=== PATIENT | male | born 1935 | race Caucasian/White ===

== ENCOUNTER 2017-02-13 11:53 | Observation (INO) ==
[2017-02-13 12:57] LABS: Basophils # 0.1 10*3/uL (0.0-0.2); Basophils % 0.7 % (0.0-0.8); Eosinophils # 0.1 10*3/uL (0.0-0.87); Eosinophils % 1.7 % (0.00-10.9); Hematocrit 36.3 VOL% (42.0-52.0); Hemoglobin 12.8 GM/DL (14.0-18.0); Immature Granulocytes % 0.4 %; Immature Granulocytes Absolute 0.03 #; Lymphocytes # 1.1 10*3/uL (1.4-4.0); Lymphocytes % 12.9 % (21.2-54.2); Mean Corpuscular HGB Conc 35.3 GM/DL (32-36); Mean Corpuscular Hemoglobin 31 PG (27-34); Mean Corpuscular Volume 88.1 FL (87-102); Mean Platelet Volume 10.8 FL (9.6-12.0); Monocytes % 11.7 % (1.7-12.7); Neutrophils # 6.1 10*3/uL (1.4-7.4); Neutrophils % 72.6 % (38.7-73.9); Platelet Count 195 T/CUMM (130-400); Red Blood Count 4.12 MC/CUMM (3.8-5.5); Red Cell Distribution Width 14.7 % (9.3-17.3); White Blood Count 8.4 T/CUMM (4-12)
[2017-02-13 13:33] LABS: Blood Urea Nitrogen 50 MG/DL (7-18); Calcium 9.2 MG/DL (8.5-10.1); Glucose 64 MG/DL (74-106); Magnesium 2.4 MG/DL (1.8-2.4); Osmolality,Calculated 289.4 MOS/KG (273-304); Potassium 3.6 MMOL/L (3.5-5.1); Sodium 140 MMOL/L (136-145); Troponin I Only < 0.015 NG/ML (0.00-0.045)
--- NOTE | 2017-02-13 13:38 | XRay Report ---
History: Shortness of breath Date: 02/13/2017 Study: Chest x-ray AP portable Comparison exam: June 22, 2016 There is continued cardiomegaly. The mediastinal contour is unchanged. There is mild aortic arch calcification. The pulmonary vasculature is upper normal. There is no gross pleural effusion. The exam was performed in shallow inspiration. There is minor platelike scar in the left lateral lung base. There is no definite acute infiltrate. Osseous structures are unchanged, with mild to moderate thoracic spondylosis. A left subclavian dual-lead transvenous pacemaker is stable in appearance. Impression: No significant change from the previous study. Cardiomegaly. Scarring in the left lung base. Pacemaker as before PROCEDURE INTERPRETED AT [facility] DEPARTMENT OF RADIOLOGY Final Report Signed by: Dr. Acacia Smart
[2017-02-13] MEDS ORDERED: MAGNESIUM SULF RIDER 4 GM in PREMIX 1 EACH IV PRN (13:57)
[2017-02-13] MEDS ORDERED: MAGNESIUM SULF RIDER 2 GM in PREMIX 1 EACH IV PRN (13:57)
--- NOTE | 2017-02-13 13:57 | Emergency Department Note ---
IPat Emily, am scribing for, and in the presence of, Irving Morrow M.D. 12 :52. ICristhian Howard T, M.D., personally performed the services described in this documentation, ascribed by Etelvina Stewart in my presence, and it is both accurate and complete [id number] . Arrival - Arrival Chief Complaint: Shortness of Breath Stated Complaint: sob,has pacemaker ED Nursing Triage Note: C/o sudden onset SOB-onset one hour ago. 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 Mode of Arrival: Wheelchair Limitations: No Limitations Source: Patient Time Seen by Provider: 02/13/17 12:43 - History of Present Illness HPI Narrative: Pt is a 81 y/o male who came to ED with c/o SOB that started earlier today while at [employer]. Pt notes having cold chills last night but denies any pains or other sxs today. 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 PMHx of 2014 had CA with [address] Garcia. Pt takes ASA and Plavix daily. Onset (ago): hour(s) Consistency: constant Severity: mild Severity scale (1-10): 3 Quality: fullness Allergies/Adverse Reactions: Allergies Allergy/AdvReac Type Severity Reaction Status Date / Time gabapentin Allergy dyskinesia Verified 06/11/15 07:12 Home Medications: Home Medications Medication Instructions Recorded Confirmed Type Pramipexole [Mirapex] 1 mg PO BEDTIME 06/03/15 02/13/17 History Atorvastatin [Lipitor] 80 mg PO BEDTIME #30 tablet 06/17/15 02/13/17 Rx Carvedilol [Coreg] 25 mg PO BID #60 tablet 06/17/15 02/13/17 Rx Cyclobenzaprine [Flexeril] 5 mg PO TID PRN #30 tablet 06/17/15 02/13/17 Rx Isosorbide Mononitrate [Imdur] 30 mg PO DAILY #30 tablet 06/17/15 02/13/17 Rx Nitroglycerin Sl Tab [Nitrostat] 0.4 mg SL Q5M PRN #0 tablet 06/17/15 02/13/17 Rx Pantoprazole Tab [Protonix Tab] 40 mg PO DAILY #30 tablet 06/17/15 02/13/17 Rx Benzonatate [Tessalon] 100 mg PO TID PRN 09/25/15 02/13/17 History Clopidogrel [Plavix] 75 mg PO DAILY 09/25/15 02/13/17 History Furosemide Tab [Lasix Tab] 40 mg PO DAILY 09/25/15 02/13/17 History clonazePAM [Clonazepam] 1 mg PO BEDTIME 09/25/15 02/13/17 History hydrALAZINE TAB [Apresoline Tab] 50 mg PO TID 09/25/15 02/13/17 History Aspirin EC Tab 325 mg PO DAILY 02/13/17 02/13/17 History Insulin Aspart Prot/Insuln Asp 32 unit SUBCUT BEDTIME 02/13/17 02/13/17 History [NovoLOG Mix 70-30 FlexPen] Insulin Aspart Prot/Insuln Asp 74 unit SUBCUT QAM 02/13/17 02/13/17 History [NovoLOG Mix 70-30 FlexPen] Review of System - Review of System 12 point system: reviewed and no additional remarkable complaints except as stated - Review of System Constitutional: Present: chills (cold last night). Absent: fever Respiratory: Present: respiratory distress Cardiovascular: Absent: chest pain Gastrointestinal: Absent: abdominal pain, nausea, vomiting Musculoskeletal: Absent: arm pain, neck pain Skin: Absent: rash Neurological: Absent: headache Medical,Surgical,& Family Hx - Medical History Cardio: History of: CAD, Hypertension, CA, Pacemaker, Cardiovascular Problems Neurology: No history of: Seizures Endocrine: History of: Diabetes Mellitus (NIDDM) Genitourinary: History of: Prostate Problems (history of prostate cancer), Genitourinary Cancer (history of prostate cancer) - Surgical History Cardiac Surgeries: Sugical HX of: Cardiac Catheterization (stents x's 2) Neurologic Surgeries: Surgical HX of: Neurologic Surgery (back surgery) Reproductive Surgeries: Surgical HX of;: Prostate Surgery - Family History Family History: Reports;: Family Diabetes - Social History Smoking Status: Never smoker Frequency of Alcohol Use: None Type of Drug Use: None Marital Status: Single Lives With:: Alone Functional capacity: independent ambulation Exam Vital Signs: Vital Signs Temperature 97.8 F 02/13/17 12:02 Pulse Rate 81 02/13/17 12:02 Respiratory Rate 20 02/13/17 12:02 Blood Pressure 112/64 02/13/17 12:02 O2 Sat by Pulse Oximetry 95 02/13/17 12:02 - General General appearance: alert, in distress (appears uncomfortable) - Head Head exam: Present: atraumatic, normocephalic - Eye Eye exam: Present: PERRL, EOMI - ENT ENT exam: Present: mucous membranes moist. Absent: mucous membranes dry - Neck Neck exam: Present: full ROM. Absent: tenderness - Chest Chest inspection: Present: symmetric chest wall rise. Absent: tenderness - Respiratory Respiratory exam: Present: normal lung sounds bilaterally. Absent: accessory muscle use, respiratory distress, wheezes - Cardiovascular Cardiovascular exam: Present: regular rate, normal rhythm, normal heart sounds - Abdominal Exam Abdominal exam: Present: soft, normal bowel sounds. Absent: distention, tenderness - Extremities Exam Extremities exam: Present: full ROM, pedal edema (+1 in BLE). Absent: tenderness - Neurological Exam Neurological exam: Present: alert, oriented X3, CN II-XII intact. Absent: motor sensory deficit - Psychiatric Psychiatric exam: Present: normal affect, normal mood - Skin Skin exam: Present: warm, dry Course Course Narrative: Medical decision making: Patient initial troponin negative but his story is suggestive given his history of cardiac issues so contact Dr. Polanco for admission she agreed overnight obvious and continue monitoring troponin. She agreed with VQ scan of elevated d-dimer. For now patient otherwise appears stable and we will admit to Dr. Polanco for continued evaluation and treatment. Results - Labs CBC & BMP: 02/13/17 12:50 02/13/17 13:01 Lab Results: I have reviewed the patients labs Labs: trop neg, ddimer elevated - EKG EKG results: interpreted by ERMD, sinus rhythm (occas pvc, RBBB), normal axis, normal ST/T - Diagnostic Findings Procedure: Chest x-ray: report reviewed by me (no acute) Disposition Clinical Impression: CRI (chronic renal insufficiency), Coronary artery disease, SOB (shortness of breath) Case discussed with: patient Disposition: Still a Patient Condition: Stable Time of Disposition: 13:57
--- NOTE | 2017-02-13 15:37 | Nuclear Medicine Report ---
History: Acute shortness of breath. Elevated d-dimer Date: 02/13/2017 Study: Nuclear medicine ventilation/perfusion lung scan Comparison exam: Chest x-ray 02/13/2017 Following the inhalation of 40 mCi aerosolized technetium 99m DTPA, images were acquired of the lungs in 3 projections for the purpose of a ventilation study. Then, following the IV administration of 5 mCi technetium 99m MAA, images were acquired of the lungs in the same projections for the purpose of a perfusion scan. There is no moderate or large unmatched segmental perfusion defect in either lung. Ventilation is without significant segmental defect. Impression: Low probability for pulmonary embolic disease PROCEDURE INTERPRETED AT [facility] DEPARTMENT OF RADIOLOGY Final Report Signed by: Dr. Acacia Smart
[2017-02-13 16:30] LABS: Troponin I Only < 0.015 NG/ML (0.00-0.045)
--- NOTE | 2017-02-13 17:30 | Cardiology History & Physical ---
Assessment and Plan (1) SOB (shortness of breath) Status: Acute Current Visit: Yes (2) CRI (chronic renal insufficiency) Status: Chronic Current Visit: Yes Qualifiers: Chronic kidney disease stage: stage 4 (severe) Qualified Code(s): N18.4 - Chronic kidney disease, stage 4 (severe) (3) Coronary artery disease Status: Chronic Current Visit: Yes (4) Atrial fibrillation Status: Chronic Current Visit: No Qualifiers: Atrial fibrillation type: paroxysmal Qualified Code(s): I48.0 - Paroxysmal atrial fibrillation (5) Diabetes mellitus Status: Chronic Current Visit: No (6) Hyperlipidemia Status: Chronic Current Visit: No (7) Hypertension Status: Chronic Current Visit: No History of Present Illness Chief complaint: sob History of present illness: Manager Of Maintenance: Dr. 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 History of ICM (EF 45%. ) May 2015 he underwent PCI with stent to proximal and mid LAD (NAE x 3), and inability to cross distal LAD, RCA 100% SHIRRER, Cx - 80% haziness was noted. Post [facility] he experienced severe bradycardia requiring PPM implantation. September underwent PCI of proximal Cx, Patent stents noted to LAD, persistent severe distal LAD disease was unchanged. Anticoagulation therapy has been withheld due to history of anemia, high falls risk, and requirement for dual antiplatelet therapy. The patient's most recent cardiac evaluation including stress testing August 2016 for symptoms of dyspnea, which did not show any ischemia. Echocardiogram July 2016 demonstrated ejection fraction 60% with some inferior wall regional wall motion abnormalities (corresponding with his RCA SHIRRER). He was seen in clinic by Dr. James 4 days ago and his pacemaker settings were adjusted. The patient was in his usual state of health until today. While at [employer] she began feeling short of breath. There was no chest pain, he denies palpitations. 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 In retrospect , he was very cold last night and had to put on a heavy jacket. He was not necessarily having fevers or chills. His driveway sealer notes that he has been having a little more difficulty exerting himself, but this seems to come more from leg and knee pain and fatigue giving out when he ambulates, more so than shortness of breath and chest discomfort. His edema has been well controlled. Impression and plan: 1. Shortness of breath-etiology is unclear. Chest x-ray is not compelling. BNP is relatively low, he does not appear to be volume overloaded on exam so I do not believe this is heart failure. He does not have a leukocytosis, cough or other clinical features of infection. The lung exam is relatively clear. We have ruled out pulmonary embolism. One possibility is that he was experiencing a bout of atrial fibrillation. Another of course would be angina, and we will cycle his cardiac biomarkers. We will have his device interrogated tomorrow, and order pulmonary function tests. If none of this yields a source for his symptoms, we could consider cardiac catheterization. However, he has significant renal insufficiency and a recent stress test that was normal. This would be a last resort. 2. Coronary artery disease-see above. 3. Atrial fibrillation-see above. 4. History of ischemic cardiomyopathy-he is not volume overloaded on exam today. 5. Hypertension-controlled. 6. Chronic renal insufficiency-appears to be somewhat stable. I am going to hold his Lasix as he may be mildly prerenal. We may need to decrease his Lasix to daily, or to take twice daily every other day, and daily on the other days. We will need to follow his weights and clinical condition. I discussed the patient's condition with his driveway sealer, as well as his son Everett Gillespie. Home Medications Medication Instructions Recorded Confirmed Type Pramipexole [Mirapex] 1 mg PO BEDTIME 06/03/15 02/13/17 History Atorvastatin [Lipitor] 80 mg PO BEDTIME #30 tablet 06/17/15 02/13/17 Rx Carvedilol [Coreg] 25 mg PO BID #60 tablet 06/17/15 02/13/17 Rx Cyclobenzaprine [Flexeril] 5 mg PO TID PRN #30 tablet 06/17/15 02/13/17 Rx Isosorbide Mononitrate [Imdur] 30 mg PO DAILY #30 tablet 06/17/15 02/13/17 Rx Nitroglycerin Sl Tab [Nitrostat] 0.4 mg SL Q5M PRN #0 tablet 06/17/15 02/13/17 Rx Pantoprazole Tab [Protonix Tab] 40 mg PO DAILY #30 tablet 06/17/15 02/13/17 Rx Benzonatate [Tessalon] 100 mg PO TID PRN 09/25/15 02/13/17 History Clopidogrel [Plavix] 75 mg PO DAILY 09/25/15 02/13/17 History Furosemide Tab [Lasix Tab] 40 mg PO DAILY 09/25/15 02/13/17 History clonazePAM [Clonazepam] 1 mg PO BEDTIME 09/25/15 02/13/17 History hydrALAZINE TAB [Apresoline Tab] 50 mg PO TID 09/25/15 02/13/17 History Aspirin EC Tab 325 mg PO DAILY 02/13/17 02/13/17 History Insulin Aspart Prot/Insuln Asp 32 unit SUBCUT BEDTIME 02/13/17 02/13/17 History [NovoLOG Mix 70-30 FlexPen] Insulin Aspart Prot/Insuln Asp 74 unit SUBCUT QAM 02/13/17 02/13/17 History [NovoLOG Mix 70-30 FlexPen] Allergies Allergy/AdvReac Type Severity Reaction Status Date / Time gabapentin Allergy dyskinesia Verified 06/11/15 07:12 12 point system: reviewed and no additional remarkable complaints except as stated Medical,Surgical,& Family Hx - Medical History Cardio: History of: CHF, CAD, Hypertension, [place], Pacemaker, Cardiovascular Problems Neurology: No history of: Seizures Endocrine: History of: Diabetes Mellitus (NIDDM) Respiratory: History of: Obstructive Sleep Apnea Genitourinary: History of: Prostate Problems (history of prostate cancer), Genitourinary Cancer (history of prostate cancer) Gastrointestinal: History of: GERD - Surgical History Cardiac Surgeries: Sugical HX of: Cardiac Catheterization (stents x's 2) Neurologic Surgeries: Surgical HX of: Neurologic Surgery (back surgery) Abdominal Surgeries: Surgical HX of: Appendectomy Reproductive Surgeries: Surgical HX of;: Prostate Surgery - Family History Family History: Reports;: Family Diabetes - Social History Smoking Status: Never smoker Frequency of Alcohol Use: None Type of Drug Use: None Lives With:: Alone Functional capacity: independent ambulation Cardiology Physical Exam - Constitutional Vitals: Vital Signs Temp Pulse Resp BP Pulse Ox 96.9 F L 83 22 158/80 97 02/13/17 15:33 02/13/17 15:33 02/13/17 15:33 02/13/17 15:33 02/13/17 15:33 Intake and Output 02/13/17 02/13/17 02/13/17 07:59 15:59 23:59 Other: Weight 105.687 kg Patient Weight 02/13/17 23:59 Weight 105.687 kg Exam: General appearance: normal weight, no acute distress - Head Head exam: Present: normal inspection, normocephalic, atraumatic. Absent: hematoma, laceration - Eye Eye exam: Present: EOMI. Absent: conjunctival injection, nystagmus, periorbital swelling, scleral icterus, laceration to eyelids Pupils: Present: PERRL. Absent: constricted, dilated, fixed, irregular, unequal - ENT ENT exam: Present: normal exam, normal external ear exam - Neck Neck exam: Present: normal inspection. Absent: lymphadenopathy, meningismus, tenderness, thyromegaly - Respiratory Respiratory exam: Present: clear to auscultation bilaterally. Absent: accessory muscle use, chest wall tenderness - Cardiovascular Cardiovascular exam: Present: regular rate and rhythm. Absent: carotid bruit, gallop, JVD, rubs - GI/Abdominal GI/Abdominal exam: Present: normal bowel sounds, soft. Absent: distended, firm , guarding, hernia, mass, tenderness, rebound. - Extremities Exam Extremities exam: Present: normal inspection, normal capillary refill. Absent: calf tenderness, edema - Back Exam Back exam: Present: normal inspection. Absent: muscle spasm, vertebral tenderness - Neurological Exam Neurological exam: Present: alert, oriented X3, grossly intact without resting or intention tremor - Psychiatric Psychiatric exam: Present: normal affect, normal mood - Skin Skin exam: Present: normal color, warm, dry, intact. Absent: cyanosis, diaphoretic, rash, urticaria Result/EKG - Labs CBC & BMP: 02/13/17 12:50 02/13/17 13:01 Lab Results: I have reviewed the past 24 hour labs Labs: Laboratory Results - last 24 hr 02/13/17 02/13/17 02/13/17 12:50 13:00 13:01 WBC 8.4 RBC 4.12 Hgb 12.8 L Hct 36.3 L MCV 88.1 MCH 31 MCHC 35.3 RDW 14.7 Plt Count 195 MPV 10.8 Neut % (Auto) 72.6 Lymph % (Auto) 12.9 L [place] % (Auto) 11.7 Eos % (Auto) 1.7 Baso % (Auto) 0.7 Neut # (Auto) 6.1 Lymph # (Auto) 1.1 L [place] # (Auto) 1.0 H Eos # (Auto) 0.1 Baso # (Auto) 0.1 Immature Gran % 0.4 Nucleated RBC % 0.0 Immature Gran # 0.03 Nucleated RBCs # 0.00 Immature Plt Fraction 0.0 D-Dimer, Quantitative 1.9 Sodium 140 Potassium 3.6 Chloride 103 Carbon Dioxide 31 Anion Gap 9.6 BUN 50 H Creatinine 2.80 H GFR Calculation 26 BUN/Creatinine Ratio 17.00 Glucose 64 L POC Glucose Calculated Osmolality 289.4 Calcium 9.2 Magnesium 2.4 Total Creatine Kinase CK-MB (CK-2) Troponin I < 0.015 B-Natriuretic Peptide 02/13/17 02/13/17 02/13/17 13:02 15:28 15:50 WBC RBC Hgb Hct MCV MCH MCHC RDW Plt Count MPV Neut % (Auto) Lymph % (Auto) [place] % (Auto) Eos % (Auto) Baso % (Auto) Neut # (Auto) Lymph # (Auto) [place] # (Auto) Eos # (Auto) Baso # (Auto) Immature Gran % Nucleated RBC % Immature Gran # Nucleated RBCs # Immature Plt Fraction D-Dimer, Quantitative Sodium Potassium Chloride Carbon Dioxide Anion Gap BUN Creatinine GFR Calculation BUN/Creatinine Ratio Glucose POC Glucose 45 L* Calculated Osmolality Calcium Magnesium Total Creatine Kinase 172 CK-MB (CK-2) 2.6 Troponin I < 0.015 B-Natriuretic Peptide 181 H - Diagnostic Findings Procedure: Chest x-ray: report reviewed by me - EKG EKG results: interpreted by me, sinus rhythm, no acute changes
[2017-02-13] MEDS ORDERED: NITROGLYCERIN SL 0.4 MG TABLET SL PRN (17:37)
[2017-02-13] MEDS ORDERED: BENZONATATE 100 MG CAPSULE PO PRN (17:37)
[2017-02-13 20:42] LABS: Troponin I Only < 0.015 NG/ML (0.00-0.045)
[2017-02-13] MEDS ORDERED: CARVEDILOL 25 MG TABLET PO SCH (21:00)
[2017-02-13] MEDS: INSULIN ASPART PROTAMINE/ASPART 70/30 100 UNIT/ML SUBCUT SCH (21:25)
[2017-02-13] MEDS: ATORVASTATIN 40 MG TABLET PO SCH (21:25)
[2017-02-13] MEDS: PRAMIPEXOLE 1 MG TABLET PO SCH (21:26)
[2017-02-13] MEDS: clonazePAM 0.5 MG TABLET PO SCH (21:26)
[2017-02-14 05:30] LABS: Basophils # 0.1 10*3/uL (0.0-0.2); Basophils % 0.8 % (0.0-0.8); Eosinophils # 0.2 10*3/uL (0.0-0.87); Eosinophils % 2.7 % (0.00-10.9); Hematocrit 35.7 VOL% (42.0-52.0); Hemoglobin 12.3 GM/DL (14.0-18.0); Immature Granulocytes % 0.6 %; Immature Granulocytes Absolute 0.04 #; Lymphocytes # 1.2 10*3/uL (1.4-4.0); Mean Corpuscular HGB Conc 34.5 GM/DL (32-36); Mean Corpuscular Hemoglobin 31 PG (27-34); Mean Corpuscular Volume 89.9 FL (87-102); Mean Platelet Volume 10.9 FL (9.6-12.0); Monocytes # 0.8 10*3/uL (0.11-0.8); Monocytes % 12.6 % (1.7-12.7); Neutrophils # 4.3 10*3/uL (1.4-7.4); Neutrophils % 65.3 % (38.7-73.9); Platelet Count 182 T/CUMM (130-400); Red Blood Count 3.97 MC/CUMM (3.8-5.5); Red Cell Distribution Width 14.7 % (9.3-17.3); White Blood Count 6.6 T/CUMM (4-12)
[2017-02-14 06:04] LABS: Magnesium 2.4 MG/DL (1.8-2.4); Osmolality,Calculated 296.3 MOS/KG (273-304); Potassium 3.7 MMOL/L (3.5-5.1)
--- NOTE | 2017-02-14 06:06 | EKG Report ---
Stationary ECG Study [facility] ER Test Date: 02/13/2017 12:01:12 PM Pat Name: MARLENA RODNEY Department: Room: 279 Gender: M [employer] Ex[employer]ator: : 1935 Requested by: Melvin Harris Order Number: [id number] Reading MD: LEIGH ANN MUNSON Intervals Calvin Rate: 83 P: -57 VA: 190 QRS: 24 QRSD: 123 T: 1 QT: 391 QTc: 430 Interpretive Statements Artifacts limit interpretation Likely atrial paced rhythm PACs RIGHT BUNDLE BRANCH BLOCK Electronically Signed On 02-14-17 07:41:21 CDT by LEIGH ANN MUNSON [email or web address]
[2017-02-14] MEDS: ISOSORBIDE MONONITRATE 30 MG TABLET PO SCH (08:34)
[2017-02-14] MEDS: NEBIVOLOL 10 MG TABLET PO SCH (08:34)
[2017-02-14] MEDS: ASPIRIN EC 325 MG TABLET PO SCH (08:34)
[2017-02-14] MEDS: INSULIN ASPART PROTAMINE/ASPART 70/30 100 UNIT/ML SUBCUT SCH ×2 (08:35→20:28)
[2017-02-14] MEDS: CLOPIDOGREL 75 MG TABLET PO SCH (08:35)
[2017-02-14] MEDS: PANTOPRAZOLE 40 MG TABLET PO SCH (08:35)
[2017-02-14 10:40] LABS: Free T4 (Free Thyroxine) 0.8 NG/DL (0.76-1.46); Thyroid Stimulating Hormone 0.354 uIU/ml (0.358-3.74)
[2017-02-14 10:54] LABS: Apearance,Urine CLEAR (Clear); Bilirubin,Urine Negative (Negative); Blood, Urine Negative (Negative); Glucose,Urine (UA) 50 mg/dL (Negative); Ketones,Urine Negative (Negative); Nitrite,Urine Negative (Negative); Protein,Urine Negative; Urine Color Straw (Yellow); Urine Specific Gravity 1.012 (1.001-1.035); Urine Urobilinogen < 2.0 EU/DL (0.2-1.0); WBC,Urine <1 /HPF (0-6)
--- NOTE | 2017-02-14 11:16 | Cardiology Progress Note ---
Assessment and Plan - Time spent with patient Time spent with patient: Greater than 30 minutes (1) Hypertension Status: Chronic Assessment and plan: SEE PLAN OF CARE LISTED BELOW Current Visit: No (2) Diabetes mellitus Status: Chronic Assessment and plan: SEE PLAN OF CARE LISTED BELOW Current Visit: No (3) S/P cardiac pacemaker procedure Status: Chronic Assessment and plan: SEE PLAN OF CARE LISTED BELOW Current Visit: No (4) Atrial fibrillation Status: Chronic Assessment and plan: SEE PLAN OF CARE LISTED BELOW Current Visit: No Qualifiers: Atrial fibrillation type: paroxysmal Qualified Code(s): I48.0 - Paroxysmal atrial fibrillation (5) Coronary artery disease Status: Chronic Assessment and plan: SEE PLAN OF CARE LISTED BELOW Current Visit: Yes Qualifiers: Coronary Disease-Associated Artery/Lesion type: [place] artery [place] vs. transplanted heart: [place] heart Associated angina: without angina Qualified Code(s): I25.10 - Atherosclerotic heart disease of [place] coronary artery without angina pectoris (6) Hyperlipidemia Status: Chronic Assessment and plan: SEE PLAN OF CARE LISTED BELOW Current Visit: No (7) CRI (chronic renal insufficiency) Status: Chronic Assessment and plan: SEE PLAN OF CARE LISTED BELOW Current Visit: Yes Qualifiers: Chronic kidney disease stage: stage 4 (severe) Qualified Code(s): N18.4 - Chronic kidney disease, stage 4 (severe) (8) SOB (shortness of breath) Status: Resolved Assessment and plan: SEE PLAN OF CARE LISTED BELOW Current Visit: Yes Cardiology - PN: Subj Interval history: CHIEF OPERATOR: DR. POLANCO SUMMARY: 81WM routinely followed by Dr. Polanco. 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 Post [facility] he experienced severe bradycardia requiring PPM implantation. September 25, 2015 underwent PCI of proximal Cx, Patent stents noted to LAD, persistent severe distal LAD disease was unchanged. Anticoagulation therapy has been withheld due to history of anemia, high falls risk, and requirement for dual antiplatelet therapy. The patient's most recent cardiac evaluation including stress testing August 2016 for symptoms of dyspnea, which did not show any ischemia. Echocardiogram July 2016 demonstrated ejection fraction 60% with some inferior wall regional wall motion abnormalities (corresponding with his RCA MOLDING MANAGER). He was seen in clinic by Dr. James 5 days ago and his pacemaker settings were adjusted. Admitted February 13, 2017 for SOB. No complaints of chest pain or palpitations. Because it lasted for "a while" he felt as if he should be evaluated in the emergency department. He also had complaints of chronic fatigue, essentially unchanged. Underwent VQ lung scan which revealed low probability of PE. Chest x-ray was essentially unremarkable. Labs stable. EKG revealed chronic right bundle branch block. BNP relatively low without evidence of CHF. FEBRUARY 14, 2017: Patient has had no additional shortness of breath. His shortness of breath was relieved in the afternoon yesterday. After reviewing telemetry, no obvious arrhythmia, occasional pacing. His pacemaker is to be interrogated this morning, specifically looking for possible arrhythmia during adventism hours. Cardiac biomarkers negative. EKG does not reveal DE. Blood pressure averaging 113 -173/60 - 80. Could consider increasing Bystolic. Patient is feeling better altogether. Will further discuss with Dr. James and await additional recommendations. Impression and plan: 1. Shortness of breath- etiology is unclear. Chest x-ray is not compelling, VQ Lung scan - low probability PE. BNP relatively low, does not appear to be volume overloaded on exam so I do not believe this is heart failure. He does not have a leukocytosis, cough or other clinical features of infection. The lung exam is relatively clear. We have ruled out pulmonary embolism. One possibility is that he was experiencing a bout of atrial fibrillation. Another of course would be angina (CIEs negative). We will have his device interrogated this morning. Underwent PFTs this morning. If none of this yields a source for his symptoms, may consider cardiac catheterization. However, he has significant renal insufficiency and a recent stress test that was normal. This would be a last resort. 2. Coronary artery disease- see above. 3. Atrial fibrillation- see above. 4. History of ischemic cardiomyopathy- he is not volume overloaded on exam. This is not CHF. 5. Hypertension- adequately controlled. 6. Chronic renal insufficiency, STAGE IV - appears to be somewhat stable. Lasix was held yesterday, monitoring his creatinine. Improved. Exam (Progress Note) - Constitutional Vitals: Period Temp Pulse Resp BP Sys/Burden Pulse Ox Last 24 Hr 96.9 F-98.2 F 68-86 18-22 112-173/64-80 95-99 Exam: General: [Appears well with no apparent distress.] [Pleasant and cooperative. ] [Appears comfortable.] HEENT: [PERRL, normocephalic, atraumatic. Mucous membranes moist. No jaundice noted. Conjunctiva moist and clear, sclerae anicteric] Neck: No JVD/HJR, no thyromegaly or lymphadenopathy noted. No carotid bruit appreciated Cardiac: [Regular rate and rhythm.] [No obvious murmur rub or gallop.] Lungs: [Clear to auscultation without accessory muscle use to assist the respiratory pattern.] Not requiring oxygen Abdomen: Soft, bowel sounds normoactive. Nontender and nondistended. No abdominal bruit or thrill noted. No masses noted. Musculoskeletal: No fluid collection. Decreased range of motion is noted. Extremities: No clubbing, cyanosis noted. [ No edema noted.] Upper extremity pulses 2+. Lower extremity pulses 2+. Capillary refill less than 3 seconds. Skin: No unusual lesions or rashes. No skin breakdown appreciated. Neuro: Awake, alert and oriented 3. Moves all extremities well without hemiparesis or paralysis. No essential tremor is appreciated. Result/EKG - Labs CBC & BMP: 02/14/17 05:04 02/14/17 05:04 Lab Results: I have reviewed the past 24 hour labs Labs: Laboratory Results - last 24 hr 02/13/17 02/13/17 02/13/17 12:50 13:00 13:01 WBC 8.4 RBC 4.12 Hgb 12.8 L Hct 36.3 L MCV 88.1 MCH 31 MCHC 35.3 RDW 14.7 Plt Count 195 MPV 10.8 Neut % (Auto) 72.6 Lymph % (Auto) 12.9 L [place] % (Auto) 11.7 Eos % (Auto) 1.7 Baso % (Auto) 0.7 Neut # (Auto) 6.1 Lymph # (Auto) 1.1 L [place] # (Auto) 1.0 H Eos # (Auto) 0.1 Baso # (Auto) 0.1 Immature Gran % 0.4 Nucleated RBC % 0.0 Immature Gran # 0.03 Nucleated RBCs # 0.00 Immature Plt Fraction 0.0 D-Dimer, Quantitative 1.9 Sodium 140 Potassium 3.6 Chloride 103 Carbon Dioxide 31 Anion Gap 9.6 BUN 50 H Creatinine 2.80 H GFR Calculation 26 BUN/Creatinine Ratio 17.00 Glucose 64 L POC Glucose Calculated Osmolality 289.4 Calcium 9.2 Magnesium 2.4 Total Creatine Kinase CK-MB (CK-2) Troponin I < 0.015 B-Natriuretic Peptide Free T4 TSH 3rd Generation 02/13/17 02/13/17 02/13/17 13:02 15:28 15:50 WBC RBC Hgb Hct MCV MCH MCHC RDW Plt Count MPV Neut % (Auto) Lymph % (Auto) [place] % (Auto) Eos % (Auto) Baso % (Auto) Neut # (Auto) Lymph # (Auto) [place] # (Auto) Eos # (Auto) Baso # (Auto) Immature Gran % Nucleated RBC % Immature Gran # Nucleated RBCs # Immature Plt Fraction D-Dimer, Quantitative Sodium Potassium Chloride Carbon Dioxide Anion Gap BUN Creatinine GFR Calculation BUN/Creatinine Ratio Glucose POC Glucose 45 L* Calculated Osmolality Calcium Magnesium Total Creatine Kinase 172 CK-MB (CK-2) 2.6 Troponin I < 0.015 B-Natriuretic Peptide 181 H Free T4 TSH 3rd Generation 02/13/17 02/13/17 02/14/17 19:17 20:35 05:02 WBC RBC Hgb Hct MCV MCH MCHC RDW Plt Count MPV Neut % (Auto) Lymph % (Auto) [place] % (Auto) Eos % (Auto) Baso % (Auto) Neut # (Auto) Lymph # (Auto) [place] # (Auto) Eos # (Auto) Baso # (Auto) Immature Gran % Nucleated RBC % Immature Gran # Nucleated RBCs # Immature Plt Fraction D-Dimer, Quantitative Sodium Potassium Chloride Carbon Dioxide Anion Gap BUN Creatinine GFR Calculation BUN/Creatinine Ratio Glucose POC Glucose 218 H Calculated Osmolality Calcium Magnesium Total Creatine Kinase 157 CK-MB (CK-2) 2.8 Troponin I < 0.015 B-Natriuretic Peptide Free T4 0.80 TSH 3rd Generation 0.354 L 02/14/17 02/14/17 05:04 05:04 WBC 6.6 RBC 3.97 Hgb 12.3 L Hct 35.7 L MCV 89.9 MCH 31 MCHC 34.5 RDW 14.7 Plt Count 182 MPV 10.9 Neut % (Auto) 65.3 Lymph % (Auto) 18.0 L [place] % (Auto) 12.6 Eos % (Auto) 2.7 Baso % (Auto) 0.8 Neut # (Auto) 4.3 Lymph # (Auto) 1.2 L [place] # (Auto) 0.8 Eos # (Auto) 0.2 Baso # (Auto) 0.1 Immature Gran % 0.6 Nucleated RBC % 0.0 Immature Gran # 0.04 Nucleated RBCs # 0.00 Immature Plt Fraction 0.0 D-Dimer, Quantitative Sodium 141 Potassium 3.7 Chloride 102 Carbon Dioxide 31 Anion Gap 11.7 BUN 44 H Creatinine 2.30 H GFR Calculation 33 BUN/Creatinine Ratio 19.00 Glucose 181 H POC Glucose Calculated Osmolality 296.3 Calcium 9.0 Magnesium 2.4 Total Creatine Kinase CK-MB (CK-2) Troponin I B-Natriuretic Peptide Free T4 TSH 3rd Generation - Diagnostic Findings Procedure: Chest x-ray: report reviewed by me - EKG EKG results: interpreted by me EKG shows: sinus rhythm
[2017-02-14] MEDS ORDERED: GLUCAGON 1 MG VIAL IM PRN (12:51)
[2017-02-14] MEDS ORDERED: DEXTROSE 50% 25 GM/50 ML SYRINGE IV PRN (12:51)
[2017-02-14] MEDS: CYCLOBENZAPRINE 10 MG TABLET PO PRN (12:58)
[2017-02-14] MEDS: BACITRACIN OINT 0.9 GM PACK TOP SCH (15:10)
[2017-02-14] MEDS: ATORVASTATIN 40 MG TABLET PO SCH (20:28)
[2017-02-14] MEDS: PRAMIPEXOLE 1 MG TABLET PO SCH (20:28)
[2017-02-14] MEDS: clonazePAM 0.5 MG TABLET PO SCH (20:29)
[2017-02-15] MEDS: CYCLOBENZAPRINE 10 MG TABLET PO PRN ×2 (03:20→21:46)
[2017-02-15 04:59] LABS: Basophils # 0.1 10*3/uL (0.0-0.2); Basophils % 0.6 % (0.0-0.8); Eosinophils # 0.2 10*3/uL (0.0-0.87); Eosinophils % 2.6 % (0.00-10.9); Hematocrit 37.4 VOL% (42.0-52.0); Hemoglobin 12.8 GM/DL (14.0-18.0); Immature Granulocytes % 0.4 %; Immature Granulocytes Absolute 0.03 #; Lymphocytes # 1.2 10*3/uL (1.4-4.0); Lymphocytes % 15.4 % (21.2-54.2); Mean Corpuscular HGB Conc 34.2 GM/DL (32-36); Mean Corpuscular Hemoglobin 31 PG (27-34); Mean Corpuscular Volume 89.7 FL (87-102); Mean Platelet Volume 11.2 FL (9.6-12.0); Monocytes # 0.9 10*3/uL (0.11-0.8); Monocytes % 11.6 % (1.7-12.7); Neutrophils # 5.4 10*3/uL (1.4-7.4); Neutrophils % 69.4 % (38.7-73.9); Platelet Count 187 T/CUMM (130-400); Red Blood Count 4.17 MC/CUMM (3.8-5.5); Red Cell Distribution Width 14.6 % (9.3-17.3); White Blood Count 7.7 T/CUMM (4-12)
[2017-02-15 05:13] LABS: Calcium 9.1 MG/DL (8.5-10.1)
[2017-02-15 05:14] LABS: Magnesium 2.2 MG/DL (1.8-2.4); Osmolality,Calculated 287.3 MOS/KG (273-304); Potassium 3.6 MMOL/L (3.5-5.1)
--- NOTE | 2017-02-15 07:22 | Pulmonology Consult Note ---
Assessment and Plan (1) CRI (chronic renal insufficiency) Status: Chronic Assessment and plan: Creatinine has come down to 1.8. This limits use of contrast. Current Visit: Yes Qualifiers: Chronic kidney disease stage: stage 4 (severe) Qualified Code(s): N18.4 - Chronic kidney disease, stage 4 (severe) (2) Coronary artery disease Status: Chronic Assessment and plan: Defer to cardiology. He did not have any colten angina associated with the dyspnea. Current Visit: Yes Qualifiers: Coronary Disease-Associated Artery/Lesion type: [place] artery [place] vs. transplanted heart: [place] heart Associated angina: without angina Qualified Code(s): I25.10 - Atherosclerotic heart disease of [place] coronary artery without angina pectoris (3) SOB (shortness of breath) Status: Resolved Assessment and plan: Etiology is not clear. Will order a high-resolution chest CT to be sure he does not have early interstitial lung disease. PFTs have been ordered as well. Current Visit: Yes (4) Atrial fibrillation Status: Chronic Assessment and plan: We will have had an episode of paroxysmal atrial fibrillation. He does not report pounding in his chest or palpitations at the time. Again defer to cardiology. Current Visit: No Qualifiers: Atrial fibrillation type: paroxysmal Qualified Code(s): I48.0 - Paroxysmal atrial fibrillation History of Present Illness Chief complaint: Shortness of breath History of present illness: Mr. Gutirerez is a 81 year old male who was sitting in [employer] Tuesday and became acutely short of breath. He said it lasted 30 minutes or so until he got to the emergency room and it resolved. Apparently he had an episode of paroxysmal atrial fibrillation. He has a history of atherosclerotic heart disease with previous interventions. He is a non-smoker and has never had lung disease in the past. His chest x-ray does not show any evidence of congestive heart failure. He has not had a fever or purulent sputum. He denies coughing up blood. He had a VQ scan that was low probability. Home Medications Medication Instructions Recorded Confirmed Type Pramipexole [Mirapex] 1 mg PO BEDTIME 06/03/15 02/13/17 History Atorvastatin [Lipitor] 80 mg PO BEDTIME #30 tablet 06/17/15 02/13/17 Rx Carvedilol [Coreg] 25 mg PO BID #60 tablet 06/17/15 02/13/17 Rx Cyclobenzaprine [Flexeril] 5 mg PO TID PRN #30 tablet 06/17/15 02/14/17 Rx Isosorbide Mononitrate [Imdur] 30 mg PO DAILY #30 tablet 06/17/15 02/13/17 Rx Nitroglycerin Sl Tab [Nitrostat] 0.4 mg SL Q5M PRN #0 tablet 06/17/15 02/13/17 Rx Pantoprazole Tab [Protonix Tab] 40 mg PO DAILY #30 tablet 06/17/15 02/13/17 Rx Benzonatate [Tessalon] 200 mg PO TID PRN 09/25/15 02/14/17 History Clopidogrel [Plavix] 75 mg PO DAILY 09/25/15 02/13/17 History Furosemide Tab [Lasix Tab] 40 mg PO DAILY 09/25/15 02/13/17 History clonazePAM [Clonazepam] 1 mg PO BEDTIME PRN 09/25/15 02/13/17 History hydrALAZINE TAB [Apresoline Tab] 25 mg PO TID 09/25/15 02/14/17 History Aspirin EC Tab 325 mg PO DAILY 02/13/17 02/13/17 History Insulin Aspart Prot/Insuln Asp 32 unit SUBCUT BEDTIME 02/13/17 02/13/17 History [NovoLOG Mix 70-30 FlexPen] Insulin Aspart Prot/Insuln Asp 74 unit SUBCUT QAM 02/13/17 02/13/17 History [NovoLOG Mix 70-30 FlexPen] Donepezil HCl 5 mg PO DAILY 02/14/17 02/14/17 History Glimepiride 6 mg PO DAILY 02/14/17 02/14/17 History Potassium Chloride 10 meq PO BID 02/14/17 02/14/17 History Probenecid 500 mg PO BID W/MEALS 02/14/17 02/14/17 History Tamsulosin [Flomax] 0.4 mg PO DAILY 02/14/17 02/14/17 History cloNIDine HCl [Clonidine HCl] 0.1 mg PO DAILY PRN 02/14/17 02/14/17 History metOLazone [Metolazone] 2.5 mg PO DAILY PRN 02/14/17 02/14/17 History Allergies Allergy/AdvReac Type Severity Reaction Status Date / Time gabapentin Allergy dyskinesia Verified 06/11/15 07:12 12 point system: reviewed and no additional remarkable complaints except as stated - Cardiovascular Cardiovascular: Present: dyspnea, palpitations - Respiratory Respiratory: Present: dyspnea Exam (Pulmonay) H&P - Constitutional Vitals: Period Temp Pulse Resp BP Sys/Burden Pulse Ox Last 24 Hr 97.3 F-98.4 F 66-86 16-20 124-173/66-83 92-99 Exam: Patient's alert oriented vital signs normal. Pupils react to light. Throat is clear. Neck supple no bruits. Chest reveals a few basilar crackles. Heart is regular without murmur. Abdomen soft nontender no masses. Extremities no clubbing cyanosis edema. Calves nontender. Medical,Surgical,& Family Hx - Medical History Cardio: History of: CHF, CAD, Hypertension, [place], Pacemaker, Cardiovascular Problems Neurology: No history of: Seizures Endocrine: History of: Diabetes Mellitus (NIDDM) Respiratory: History of: Obstructive Sleep Apnea Genitourinary: History of: Prostate Problems (history of prostate cancer), Genitourinary Cancer (history of prostate cancer) Gastrointestinal: History of: GERD - Surgical History Cardiac Surgeries: Sugical HX of: Cardiac Catheterization (stents x's 2) Neurologic Surgeries: Surgical HX of: Neurologic Surgery (back surgery) Abdominal Surgeries: Surgical HX of: Appendectomy Reproductive Surgeries: Surgical HX of;: Prostate Surgery - Family History Family History: Reports;: Family Diabetes - Social History Smoking Status: Never smoker Frequency of Alcohol Use: None Type of Drug Use: None Results - Labs CBC & BMP: 02/15/17 03:38 02/15/17 03:38 Lab Results: I have reviewed the past 24 hour labs - Diagnostic Findings Procedure: Chest x-ray: image reviewed by me (Pacemaker in place. Heart normal size. No infiltrates.)
[2017-02-15] MEDS: INSULIN ASPART PROTAMINE/ASPART 70/30 100 UNIT/ML SUBCUT SCH ×2 (09:53→21:44)
[2017-02-15] MEDS: ISOSORBIDE MONONITRATE 30 MG TABLET PO SCH (09:55)
[2017-02-15] MEDS: ASPIRIN EC 325 MG TABLET PO SCH (09:55)
[2017-02-15] MEDS: CLOPIDOGREL 75 MG TABLET PO SCH (09:55)
[2017-02-15] MEDS: NEBIVOLOL 10 MG TABLET PO SCH (09:55)
[2017-02-15] MEDS: PANTOPRAZOLE 40 MG TABLET PO SCH (09:55)
--- NOTE | 2017-02-15 10:47 | CT Report ---
CT chest high resolution Indication: Dyspnea, crackles, interstitial lung disease Comparison: None available Technique: Axial CT imaging of the chest was done at 3 mm intervals with intravenous contrast. Contrast dose was Omnipaque 350. Findings: There are small amount of increased interstitial density in the subpleural areas of the dependent lungs. This appears to shift and slightly improved when change from prior to supine positioning. Remaining lungs show no evidence of infiltrates or airspace disease. No nodule or mass is identified. No effusion or pneumothorax is seen. The heart, mediastinum and great vessels appear within normal limits. No other abnormality is identified. Impression: Small amounts of subpleural interstitial density mostly in the dependent lungs and improves with positioning may indicate mild interstitial lung disease with mild atelectasis. This CT exam was performed using one or more the following dose reduction techniques: Automated exposure control, adjustment of the MA and/or KV according to patient size, or use of iterative reconstruction technique. PROCEDURE INTERPRETED AT [facility] DEPARTMENT OF RADIOLOGY Final Report Signed by: Dr. Justin Staples
--- NOTE | 2017-02-15 13:18 | Event Note ---
Patient has mild patchy interstitial lung disease at the left base on CT scan. He also has some interstitial edema and small pleural effusions which clear when he is in the prone position. This would suggest he is a little ahead on fluid. He may have very early interstitial lung disease but it does not appear to be severe by CT scan. His PFTs are worse than one would expect from this.
[2017-02-15] MEDS ORDERED: FUROSEMIDE 40 MG/4 ML VIAL IV ONE (13:19)
[2017-02-15] MEDS ORDERED: SKIN HEALING OINT (AQUAPHOR) 50 GM TUBE TOP PRN (14:16)
[2017-02-15] MEDS ORDERED: CHLORHEXIDINE 4% SOLN 118 ML BOTTLE TOP ONE (14:16)
--- NOTE | 2017-02-15 14:21 | General Surgery Consult Note ---
Assessment and Plan - Time spent with patient Time spent with patient: Greater than 30 minutes (1) Diabetic ulcer of toe of left foot Status: Acute Assessment and plan: 02/15/2017. Patient with small eschar/diabetic ulcer of the plantar left third toe. This does not appear to have any gross signs of infection. Of note, he recently had this area "shaved" by Dr. Fabricio Hartman, so we will plan to keep her informed of his progress. He does note a history of gout, so we will check a uric acid level although this seems less likely prospect in this situation. We will go ahead and start moisturizing to try to loosen and be able to better evaluate the eschar. Since there is no overt sign of infection, will stick with topical antibiotic ointment. I have stressed to him that he needs to minimize pressure in this area. Pulses are palpable, so it is doubtful there is major occlusive problem, although we have discussed the fact that he still may have microvascular disease contributing to this problem which may involve Inder inhibit healing. Current Visit: Yes History of Present Illness Chief complaint: Left third toe ulcer History of present illness: Mr. Gutierrez is a 81 year old male Home Medications Medication Instructions Recorded Confirmed Type Pramipexole [Mirapex] 1 mg PO BEDTIME 06/03/15 02/13/17 History Atorvastatin [Lipitor] 80 mg PO BEDTIME #30 tablet 06/17/15 02/13/17 Rx Carvedilol [Coreg] 25 mg PO BID #60 tablet 06/17/15 02/13/17 Rx Cyclobenzaprine [Flexeril] 5 mg PO TID PRN #30 tablet 06/17/15 02/14/17 Rx Isosorbide Mononitrate [Imdur] 30 mg PO DAILY #30 tablet 06/17/15 02/13/17 Rx Nitroglycerin Sl Tab [Nitrostat] 0.4 mg SL Q5M PRN #0 tablet 06/17/15 02/13/17 Rx Pantoprazole Tab [Protonix Tab] 40 mg PO DAILY #30 tablet 06/17/15 02/13/17 Rx Benzonatate [Tessalon] 200 mg PO TID PRN 09/25/15 02/14/17 History Clopidogrel [Plavix] 75 mg PO DAILY 09/25/15 02/13/17 History Furosemide Tab [Lasix Tab] 40 mg PO DAILY 09/25/15 02/13/17 History clonazePAM [Clonazepam] 1 mg PO BEDTIME PRN 09/25/15 02/13/17 History hydrALAZINE TAB [Apresoline Tab] 25 mg PO TID 09/25/15 02/14/17 History Aspirin EC Tab 325 mg PO DAILY 02/13/17 02/13/17 History Insulin Aspart Prot/Insuln Asp 32 unit SUBCUT BEDTIME 02/13/17 02/13/17 History [NovoLOG Mix 70-30 FlexPen] Insulin Aspart Prot/Insuln Asp 74 unit SUBCUT QAM 02/13/17 02/13/17 History [NovoLOG Mix 70-30 FlexPen] Donepezil HCl 5 mg PO DAILY 02/14/17 02/14/17 History Glimepiride 6 mg PO DAILY 02/14/17 02/14/17 History Potassium Chloride 10 meq PO BID 02/14/17 02/14/17 History Probenecid 500 mg PO BID W/MEALS 02/14/17 02/14/17 History Tamsulosin [Flomax] 0.4 mg PO DAILY 02/14/17 02/14/17 History cloNIDine HCl [Clonidine HCl] 0.1 mg PO DAILY PRN 02/14/17 02/14/17 History metOLazone [Metolazone] 2.5 mg PO DAILY PRN 02/14/17 02/14/17 History Allergies Allergy/AdvReac Type Severity Reaction Status Date / Time gabapentin Allergy dyskinesia Verified 06/11/15 07:12 Medical,Surgical,& Family Hx - Medical History Cardio: History of: CHF, CAD, Hypertension, [place], Pacemaker, Cardiovascular Problems Neurology: No history of: Seizures Endocrine: History of: Diabetes Mellitus (NIDDM) Respiratory: History of: Obstructive Sleep Apnea Genitourinary: History of: Prostate Problems (history of prostate cancer), Genitourinary Cancer (history of prostate cancer) Gastrointestinal: History of: GERD - Surgical History Cardiac Surgeries: Sugical HX of: Cardiac Catheterization (stents x's 2) Neurologic Surgeries: Surgical HX of: Neurologic Surgery (back surgery) Abdominal Surgeries: Surgical HX of: Appendectomy Reproductive Surgeries: Surgical HX of;: Prostate Surgery - Family History Family History: Reports;: Family Diabetes - Social History Smoking Status: Never smoker Frequency of Alcohol Use: None Type of Drug Use: None Exam - Constitutional Vitals: Period Temp Pulse Resp BP Sys/Burden Pulse Ox Last 24 Hr 97.3 F-98.9 F 66-78 16-20 119-167/66-83 92-99 General appearance: no acute distress, over weight - Head Head exam: Present: normocephalic - Neck Neck exam: Absent: tenderness - Respiratory Respiratory exam: Absent: rales, wheezes - Cardiovascular Cardiovascular exam: Present: RRR - GI/Abdominal GI/Abdominal exam: Present: soft. Absent: tenderness - Extremities Exam Extremities exam: Present: normal capillary refill, edema (Trace), other (Left third toe with mild swelling and claw toe deformity. There is mild resolving erythema from the midfoot in a triangular distribution extending to the toe tip. , Where there is a small, 0.6 x 0.6 x 0.1 cm ulcer. This has a rivera, soft, leathery eschar present. There is no drainage, no fluctuance, no odor. The toe at the DIP joint is quite tender with effusion. There is no redness noted. I see no other lesions, no crepitus is present. He does have midfoot bunions bilateral first metatarsal heads and quad toe deformities present bilaterally. Bilateral DP and PT pulses are palpable and there are no ischemic skin changes noted. He has mild chronic venous stasis skin changes present, most notably at the gaiter area. Edema is very minimal; ANALY hose are in place). Absent: calf tenderness Results - Labs CBC & BMP: 02/15/17 03:38 02/15/17 03:38 Lab Results: I have reviewed the past 24 hour labs
[2017-02-15] MEDS: BACITRACIN OINT 0.9 GM PACK TOP SCH (14:50)
--- NOTE | 2017-02-15 15:10 | XRay Report ---
XR toes LT Indication: Ulcer with swelling left third toe, diabetes mellitus type 2 Comparison: None Technique: Frontal, lateral, and oblique views of the toes of the left foot. Findings: Hammertoe deformities of several toes noted. Soft tissue swelling about the third digit without definitive osseous erosion of the third digit to suggest acute osteomyelitis. There is hallux valgus deformity with associated degenerative change. There is irregularity of the distal first metatarsal which may reflect sequela of inflammatory arthropathy such as gout. IMPRESSION: As above. PROCEDURE INTERPRETED AT [facility] DEPARTMENT OF RADIOLOGY Final Report Signed by: Dr Edmar Swanson
--- NOTE | 2017-02-15 15:51 | Cardiology Progress Note ---
Kris Ayala Lesley, MICHELE, am scribing for, and in the presence of, Alicia Lacey NP 15:46. Assessment and Plan - Time spent with patient Time spent with patient: Greater than 30 minutes (1) Diabetic ulcer of toe of left foot Status: Acute Assessment and plan: SEE PLAN OF CARE LISTED BELOW Current Visit: Yes (2) CRI (chronic renal insufficiency) Status: Chronic Assessment and plan: SEE PLAN OF CARE LISTED BELOW Current Visit: Yes Qualifiers: Chronic kidney disease stage: stage 4 (severe) Qualified Code(s): N18.4 - Chronic kidney disease, stage 4 (severe) (3) Coronary artery disease Status: Chronic Assessment and plan: SEE PLAN OF CARE LISTED BELOW Current Visit: Yes Qualifiers: Coronary Disease-Associated Artery/Lesion type: [place] artery [place] vs. transplanted heart: [place] heart Associated angina: without angina Qualified Code(s): I25.10 - Atherosclerotic heart disease of [place] coronary artery without angina pectoris (4) SOB (shortness of breath) Status: Resolved Assessment and plan: SEE PLAN OF CARE LISTED BELOW Current Visit: Yes (5) Atrial fibrillation Status: Chronic Assessment and plan: SEE PLAN OF CARE LISTED BELOW Current Visit: No Qualifiers: Atrial fibrillation type: paroxysmal Qualified Code(s): I48.0 - Paroxysmal atrial fibrillation (6) Diabetes mellitus Status: Chronic Assessment and plan: SEE PLAN OF CARE LISTED BELOW Current Visit: No (7) Hyperlipidemia Status: Chronic Assessment and plan: SEE PLAN OF CARE LISTED BELOW Current Visit: No (8) S/P cardiac pacemaker procedure Status: Chronic Assessment and plan: SEE PLAN OF CARE LISTED BELOW Current Visit: No (9) Acute on chronic renal insufficiency Status: Resolved Assessment and plan: SEE PLAN OF CARE LISTED BELOW Current Visit: No Cardiology - PN: Subj Interval history: Assessment and Plan - Time spent with patient Time spent with patient: Greater than 30 minutes (1) Hypertension Status: Chronic Assessment and plan: SEE PLAN OF CARE LISTED BELOW Current Visit: No (2) Diabetes mellitus Status: Chronic Assessment and plan: SEE PLAN OF CARE LISTED BELOW Current Visit: No (3) S/P cardiac pacemaker procedure Status: Chronic Assessment and plan: SEE PLAN OF CARE LISTED BELOW Current Visit: No (4) Atrial fibrillation Status: Chronic Assessment and plan: SEE PLAN OF CARE LISTED BELOW Current Visit: No Qualifiers: Atrial fibrillation type: paroxysmal Qualified Code(s): I48.0 - Paroxysmal atrial fibrillation (5) Coronary artery disease Status: Chronic Assessment and plan: SEE PLAN OF CARE LISTED BELOW Current Visit: Yes Qualifiers: Coronary Disease-Associated Artery/Lesion type: [place] artery [place] vs. transplanted heart: [place] heart Associated angina: without angina Qualified Code(s): I25.10 - Atherosclerotic heart disease of 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 Polanco. 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 Post [facility] he experienced severe bradycardia requiring PPM implantation. September 25, 2015 underwent PCI of proximal Cx, Patent stents noted to LAD, persistent severe distal LAD disease was unchanged. Anticoagulation therapy has been withheld due to history of anemia, high falls risk, and requirement for dual antiplatelet therapy. The patient's most recent cardiac evaluation including stress testing August 2016 for symptoms of dyspnea, which did not show any ischemia. Echocardiogram July 2016 demonstrated ejection fraction 60% with some inferior wall regional wall motion abnormalities (corresponding with his RCA SCIENCE ANALYST). He was seen in clinic by Dr. James 5 days ago and his pacemaker settings were adjusted. Admitted February 13, 2017 for SOB. No complaints of chest pain or palpitations. Because it lasted for "a while" he felt as if he should be evaluated in the emergency department. He also had complaints of chronic fatigue, essentially unchanged. Underwent VQ lung scan which revealed low probability of PE. Chest x-ray was essentially unremarkable. Labs stable. EKG revealed chronic right bundle branch block. BNP relatively low without evidence of CHF. FEBRUARY 14, 2017: Patient has had no additional shortness of breath. His shortness of breath was relieved in the afternoon yesterday. After reviewing telemetry, no obvious arrhythmia, occasional pacing. His pacemaker is to be interrogated this morning, specifically looking for possible arrhythmia during uatsdin hours. Cardiac biomarkers negative. EKG does not reveal SC. Blood pressure averaging 113 -173/60 - 80. Could consider increasing Bystolic. Patient is feeling better altogether. Will further discuss with Dr. James and await additional recommendations. FEBRUARY 15, 2017: The patient did well overnight. He denies anything outside of his normal shortness of breath on exertion that is mild. He notes a dry cough. No obvious arrhythmias on telemetry, occasional pacing. Some changes were made to his pacemaker yesterday by Dr. James. Blood pressure is stable. The patient did have abnormal PFTs this morning, and chest CT is abnormal revealing possible mild interstitial lung disease. Pulmonology is seeing and treating the patient for this. He does report he does use an inhaler sometime ago prescribed by his PCP. Creatinine has improved, 1.8. Awaiting Dr. Stoll's recommendations regarding toe wound. Once assessed, may consider discharge this afternoon. ASSESSMENT/PLAN: Impression and plan: 1. Shortness of breath - PFTs reveal severe restrictive lung disease. CT chest reveals interstitial lung disease, mild. Breathing has improved in general. Patient may be discharged home today. I will discuss with Dr. Garcia his preference on medications prior to discharge 2. Coronary artery disease - see above. No complaints of angina 3. Atrial fibrillation - see above. Rate controlled. 4. History of ischemic cardiomyopathy - he is not volume overloaded on exam. This is not CHF. 5. Hypertension- adequately controlled. 6. Chronic renal insufficiency, STAGE IV - appears to be somewhat stable. Lasix was held yesterday, monitoring his creatinine. Improved overnight. Exam (Progress Note) - Constitutional Vitals: Period Temp Pulse Resp BP Sys/Burden Pulse Ox Last 24 Hr 97.3 F-98.8 F 66-75 16-20 124-167/66-83 92-99 Exam: General: [Appears well with no apparent distress.] [Pleasant and cooperative. ] [Appears comfortable.] HEENT: [PERRL, normocephalic, atraumatic. Mucous membranes moist. No jaundice noted. Conjunctiva moist and clear, sclerae anicteric] Neck: No JVD/HJR, no thyromegaly or lymphadenopathy noted. No carotid bruit appreciated Cardiac: [Regular rate and rhythm.] [No obvious murmur rub or gallop.] Lungs: [Clear to auscultation without accessory muscle use to assist the respiratory pattern.] Not requiring oxygen Abdomen: Soft, bowel sounds normoactive. Nontender and nondistended. No abdominal bruit or thrill noted. No masses noted. Musculoskeletal: No fluid collection. Decreased range of motion is noted. Extremities: No clubbing, cyanosis noted. [ No edema noted.] Upper extremity pulses 2+. Lower extremity pulses 2+. Capillary refill less than 3 seconds. Skin: No unusual lesions or rashes. No skin breakdown appreciated. Neuro: Awake, alert and oriented 3. Moves all extremities well without hemiparesis or paralysis. No essential tremor is appreciated. Result/EKG - Labs CBC & BMP: 02/15/17 03:38 02/15/17 03:38 Labs: Laboratory Results - last 24 hr 02/14/17 02/14/17 02/14/17 05:02 08:19 10:49 WBC RBC Hgb Hct MCV MCH MCHC RDW Plt Count MPV Neut % (Auto) Lymph % (Auto) [place] % (Auto) Eos % (Auto) Baso % (Auto) Neut # (Auto) Lymph # (Auto) [place] # (Auto) Eos # (Auto) Baso # (Auto) Immature Gran % Nucleated RBC % Immature Gran # Nucleated RBCs # Immature Plt Fraction Sodium Potassium Chloride Carbon Dioxide Anion Gap BUN Creatinine GFR Calculation BUN/Creatinine Ratio Glucose POC Glucose 178 H Calculated Osmolality Calcium Magnesium Free T4 0.80 TSH 3rd Generation 0.354 L Urine Color Straw Urine Appearance Clear Urine pH 7.0 Ur Specific [place] 1.012 Urine Protein Negative Urine Glucose (UA) 50 Urine Ketones Negative Urine Blood Negative Urine Nitrate Negative Urine Bilirubin Negative Urine Urobilinogen < 2.0 H Urine Leukocytes Negative Urine WBC <1 Ur Culture Indicated? Not indicated 02/14/17 02/14/17 02/14/17 12:32 15:56 20:27 WBC RBC Hgb Hct MCV MCH MCHC RDW Plt Count MPV Neut % (Auto) Lymph % (Auto) [place] % (Auto) Eos % (Auto) Baso % (Auto) Neut # (Auto) Lymph # (Auto) [place] # (Auto) Eos # (Auto) Baso # (Auto) Immature Gran % Nucleated RBC % Immature Gran # Nucleated RBCs # Immature Plt Fraction Sodium Potassium Chloride Carbon Dioxide Anion Gap BUN Creatinine GFR Calculation BUN/Creatinine Ratio Glucose POC Glucose 155 H 113 H 149 H Calculated Osmolality Calcium Magnesium Free T4 TSH 3rd Generation Urine Color Urine Appearance Urine pH Ur Specific [place] Urine Protein Urine Glucose (UA) Urine Ketones Urine Blood Urine Nitrate Urine Bilirubin Urine Urobilinogen Urine Leukocytes Urine WBC Ur Culture Indicated? 02/15/17 02/15/17 02/15/17 03:38 03:38 07:36 WBC 7.7 RBC 4.17 Hgb 12.8 L Hct 37.4 L MCV 89.7 MCH 31 MCHC 34.2 RDW 14.6 Plt Count 187 MPV 11.2 Neut % (Auto) 69.4 Lymph % (Auto) 15.4 L [place] % (Auto) 11.6 Eos % (Auto) 2.6 Baso % (Auto) 0.6 Neut # (Auto) 5.4 Lymph # (Auto) 1.2 L [place] # (Auto) 0.9 H Eos # (Auto) 0.2 Baso # (Auto) 0.1 Immature Gran % 0.4 Nucleated RBC % 0.0 Immature Gran # 0.03 Nucleated RBCs # 0.00 Immature Plt Fraction 0.0 Sodium 141 Potassium 3.6 Chloride 104 Carbon Dioxide 31 Anion Gap 9.6 BUN 34 H D Creatinine 1.80 H GFR Calculation 44 BUN/Creatinine Ratio 18.00 Glucose 73 L POC Glucose 67 L Calculated Osmolality 287.3 Calcium 9.1 Magnesium 2.2 Free T4 TSH 3rd Generation Urine Color Urine Appearance Urine pH Ur Specific [place] Urine Protein Urine Glucose (UA) Urine Ketones Urine Blood Urine Nitrate Urine Bilirubin Urine Urobilinogen Urine Leukocytes Urine WBC Ur Culture Indicated? - EKG EKG results: interpreted by me EKG shows: atrial fibrillation Specialty Discharge - Follow Up or Referrals Follow up with: Jb Garcia MD [Physician] - 03/28/17 2:45 pm Abhijit Ayala Bonnie E, NP, personally performed the services described in this documentation, ascribed by America Ponce NP in my presence, and it is both accurate and complete 551 .
[2017-02-15] MEDS: GENTAMICIN 0.1% OINT 15 GM TUBE TOP SCH ×2 (17:32→21:44)
[2017-02-15] MEDS: ATORVASTATIN 40 MG TABLET PO SCH (21:43)
[2017-02-15] MEDS: clonazePAM 0.5 MG TABLET PO SCH (21:44)
[2017-02-15] MEDS: PRAMIPEXOLE 1 MG TABLET PO SCH (21:44)
[2017-02-16 05:15] LABS: Basophils # 0.1 10*3/uL (0.0-0.2); Basophils % 0.9 % (0.0-0.8); Eosinophils # 0.2 10*3/uL (0.0-0.87); Eosinophils % 3.4 % (0.00-10.9); Hematocrit 39.2 VOL% (42.0-52.0); Hemoglobin 13.6 GM/DL (14.0-18.0); Immature Granulocytes % 0.1 %; Immature Granulocytes Absolute 0.01 #; Lymphocytes # 1.2 10*3/uL (1.4-4.0); Lymphocytes % 17.2 % (21.2-54.2); Mean Corpuscular HGB Conc 34.7 GM/DL (32-36); Mean Corpuscular Hemoglobin 31 PG (27-34); Mean Corpuscular Volume 88.1 FL (87-102); Mean Platelet Volume 10.8 FL (9.6-12.0); Monocytes # 0.8 10*3/uL (0.11-0.8); Neutrophils # 4.7 10*3/uL (1.4-7.4); Neutrophils % 67.4 % (38.7-73.9); Platelet Count 217 T/CUMM (130-400); Red Blood Count 4.45 MC/CUMM (3.8-5.5); Red Cell Distribution Width 14.6 % (9.3-17.3)
[2017-02-16 05:44] LABS: Calcium 9.2 MG/DL (8.5-10.1); Magnesium 2.2 MG/DL (1.8-2.4); Osmolality,Calculated 282.4 MOS/KG (273-304); Potassium 3.8 MMOL/L (3.5-5.1)
--- NOTE | 2017-02-16 07:19 | Pulmonology Progress Note ---
Pulmonary - PN: Subj Interval history: This 81-year-old white male was found to have restrictive PFTs. CT scan showed some minimal areas of scarring in the bases primarily left base. Certainly not enough to consider IPF. 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 Causes of his restriction may be this plus chest wall loading from obesity. I would like to follow him with pulmonary functions and follow-up high-resolution chest CT is to be sure he is not developing IPF. There is no specific treatment for what he has now. Needs weight loss and exercise. Oxygen saturations look good. He does not need oxygen at home. this was discussed with him. Exam (Progress Note) - Constitutional Vitals: Period Temp Pulse Resp BP Sys/Burden Pulse Ox Last 24 Hr 97.4 F-99.3 F 69-79 16-22 119-167/67-80 92-96 Exam: Patient's alert oriented. Vital signs normal. Pupils react to light. Throat is clear. Neck supple no bruits. Chest reveals some minimal crackles at the left base. Heart normal rate and rhythm no murmurs. Abdomen soft nontender no masses. Extremities no clubbing cyanosis or edema. Calves nontender. Results - Labs CBC & BMP: 02/16/17 04:49 02/16/17 04:49 Lab Results: I have reviewed the past 24 hour labs Assessment and Plan (1) CRI (chronic renal insufficiency) Status: Chronic Assessment and plan: Creatinine has come down to 1.8. This limits use of contrast. Current Visit: Yes Qualifiers: Chronic kidney disease stage: stage 4 (severe) Qualified Code(s): N18.4 - Chronic kidney disease, stage 4 (severe) (2) Coronary artery disease Status: Chronic Assessment and plan: Defer to cardiology. He did not have any [place] angina associated with the dyspnea. 02/16/2017 still may be playing a part in his dyspnea. Current Visit: Yes Qualifiers: Coronary Disease-Associated Artery/Lesion type: [place] artery [place] vs. transplanted heart: [place] heart Associated angina: without angina Qualified Code(s): I25.10 - Atherosclerotic heart disease of [place] coronary artery without angina pectoris (3) SOB (shortness of breath) Status: Resolved Assessment and plan: Etiology is not clear. Will order a high-resolution chest CT to be sure he does not have early interstitial lung disease. PFTs have been ordered as well. 02/16/2017 pulmonary function studies show moderate restriction. High-resolution chest CT shows a few small areas of scarring that is nonspecific. At the present time I would say he has nonspecific interstitial pneumonitis, which may be caused by postinflammatory changes or may be idiopathic. There is nothing to indicate IPF at this time. He needs follow-up with CTs and PFTs over time to see if this progresses or is stable. Does not need oxygen. Does need weight loss and exercise. I will see him in the office in a month. We may discuss pulmonary rehab at that time. Current Visit: Yes (4) Atrial fibrillation Status: Chronic Assessment and plan: We may have had an episode of paroxysmal atrial fibrillation. He does not report pounding in his chest or palpitations at the time. Again defer to cardiology. Current Visit: No Qualifiers: Atrial fibrillation type: paroxysmal Qualified Code(s): I48.0 - Paroxysmal atrial fibrillation Specialty Discharge - Follow Up or Referrals Follow up with: Jb Garcia MD [Physician] - 03/28/17 2:45 pm
[2017-02-16 08:25] VITALS: BP 174/81
[2017-02-16] MEDS: INSULIN ASPART PROTAMINE/ASPART 70/30 100 UNIT/ML SUBCUT SCH (08:50)
[2017-02-16] MEDS: CLOPIDOGREL 75 MG TABLET PO SCH (10:01)
[2017-02-16] MEDS: ASPIRIN EC 325 MG TABLET PO SCH (10:01)
[2017-02-16] MEDS: ISOSORBIDE MONONITRATE 30 MG TABLET PO SCH (10:02)
[2017-02-16] MEDS: NEBIVOLOL 10 MG TABLET PO SCH (10:02)
[2017-02-16] MEDS: PANTOPRAZOLE 40 MG TABLET PO SCH (10:02)
--- NOTE | 2017-02-16 10:59 | General Surgery Progress Note ---
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 Patient with small eschar/diabetic ulcer of the plantar left third toe. This does not appear to have any gross signs of infection. Of note, he recently had this area "shaved" by Dr. Fabricio Hartman, so we will plan to keep her informed of his progress. He does note a history of gout, so we will check a uric acid level although this seems less likely prospect in this situation. We will go ahead and start moisturizing to try to loosen and be able to better evaluate the eschar. Since there is no overt sign of infection, will stick with topical antibiotic ointment. I have stressed to him that he needs to minimize pressure in this area. Pulses are palpable, so it is doubtful there is major occlusive problem, although we have discussed the fact that he still may have microvascular disease contributing to this problem which may involve In[place] inhibit healing. 02/16/2017. Diabetic foot ulcer of the left third toe. This appears to be responding with minor local care and topical antibiotics. We will plan to continue close observation and let Dr. Hartman know of these changes. Of note, his uric acid level is elevated and will discuss with him the benefit of watching his diet and medication adherence during this time, although I do not see any tophaceous material or other joint changes. I plan to follow him up in the office in 1-2 weeks, however he stresses that since he is a and would [facility], he prefers to just call us if there is problem. He already has a follow-up appointment scheduled with Dr. Hartman in early March, and he seems a reasonably reliable patient. I stressed with him the dangers of an untreated infection, including the fact that he would face threats to his health and be in jeopardy of possibly losing the toe if there was an untreated infection present. Also went over with him changes to watch for, including but not limited to redness or discoloration of the toe or foot, increased swelling, drainage, pain, malaise, elevated blood sugars, fever, chills. I urged him to notify us immediately should any of these factors present. We also went over in detail the steps for his local care and he reassures me that he will call us should he have any questions and will follow up with Dr. Hartman as scheduled. Current Visit: Yes Subjective Patient reports: Present: feels better, pain is less, other (Patient says he is breathing better today. He says his toe is bothering him less.) Exam - Constitutional Vitals: Period Temp Pulse Resp BP Sys/Burden Pulse Ox Last 24 Hr 97.4 F-99.3 F 67-79 16-22 119-174/67-81 92-96 General appearance: no acute distress, over weight - Extremities Exam Extremities exam: Present: other (Left third toe is less swollen and general erythema is slightly decreased. The scaliness is less and there is no gross purulence. He still has a soft [place] eschar of approximately 0.5 cm at the distal tip of the toe. This is stable and there is no fluctuance. His tenderness is much less pronounced and I am now able to manipulate the DIP joint without pain. The dorsal foot rash is much less pronounced as well and there is no other skin change noted. He is wearing his compression sock on the left. I actually performed the dressing change on the left, and in addition inspected the right foot and placed the compression sock on that side as well.) Results - Labs CBC & BMP: 02/16/17 04:49 02/16/17 04:49 Lab Results: I have reviewed the past 24 hour labs (Labs noted; uric acid is elevated at 9.3.) Specialty Discharge - Follow Up or Referrals Follow up with: Jb Garcia MD [Physician] - 03/28/17 2:45 pm Juani Polanco MD [Physician] - ([address] Polanco, labs CBC & BMP)
--- NOTE | 2017-02-16 11:06 | Discharge Summary ---
Kris Ayala Lesley, MICHELE, am scribing for, and in the presence of, Alicia Lacey NP 11:05. Hospital Course - Hospital Course Hospital Course: SUPERVISOR FRAME SAMPLE AND PATTERN: DR. POLANCO SUMMARY: 81WM routinely followed by Dr. Polanco. 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 [place] he experienced severe bradycardia requiring PPM implantation. September 25, 2015 underwent PCI of proximal Cx, Patent stents noted to LAD, persistent severe distal LAD disease was unchanged. Anticoagulation therapy has been withheld due to history of anemia, high falls risk, and requirement for dual antiplatelet therapy. The patient's most recent cardiac evaluation including stress testing August 2016 for symptoms of dyspnea, which did not show any ischemia. 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 He was seen in clinic by Dr. James 5 days ago and his pacemaker settings were adjusted. Admitted February 13, 2017 for SOB. No complaints of chest pain or palpitations. Because it lasted for "a while" he felt as if he should be evaluated in the emergency department. He also had complaints of chronic fatigue, essentially unchanged. Underwent VQ lung scan which revealed low probability of PE. Chest x-ray was essentially unremarkable. Labs stable. EKG revealed chronic right bundle branch block. BNP relatively low without evidence of CHF. FEBRUARY 14, 2017: Patient has had no additional shortness of breath. His shortness of breath was relieved in the afternoon yesterday. After reviewing telemetry, no obvious arrhythmia, occasional pacing. His pacemaker is to be interrogated this morning, specifically looking for possible arrhythmia during muslim hours. Cardiac biomarkers negative. EKG does not reveal HI. Blood pressure averaging 113 -173/60 - 80. Could consider increasing Bystolic. Patient is feeling better altogether. Will further discuss with Dr. James and await additional recommendations. FEBRUARY 15, 2017: The patient did well overnight. He denies anything outside of his normal shortness of breath on exertion that is mild. He notes a dry cough. No obvious arrhythmias on telemetry, occasional pacing. Some changes were made to his pacemaker yesterday by Dr. James. Blood pressure is stable. The patient did have abnormal PFTs this morning, and chest CT is abnormal revealing possible mild interstitial lung disease. Pulmonology is seeing and treating the patient for this. He does report he does use an inhaler sometime ago prescribed by his PCP. Creatinine has improved, 1.8. Dr. Stoll consulted for complaints of pain to chronic ulcer on left foot. FEBRUARY 16, 2017: Patient is doing well this morning and awaiting discharge. Dr. Garcia did not feel that chest CT revealed IPF. He will follow the patient with pulmonary function testing and chest CT to further rule out interstitial pulmonary disease, the patient has an appointment scheduled for follow-up. Weight loss and exercise were recommended by Dr. Garcia. Patient was evaluated by general surgery for chronic ulcer on the middle toe of the left foot, did not feel the ulcer was infected, the patient was encouraged to minimize pressure in the area and follow-up with Dr. Hartman. A uric acid level was checked and found to be elevated and the patient will follow up with his PCP for this. Patient will follow up with Dr. Polanco in 6 weeks and labs will be ordered. Renal function has stabilized with a creatinine of 1.8. Discharge medications are as follows: Aspirin 325 mg p.o. daily Atorvastatin 80 mg p.o. bedtime Clopidogrel 75 mg p.o. daily Hydralazine 50 mg p.o. 3 times daily daily Imdur 30 mg p.o. daily Bystolic 20 mg p.o. daily Nitroglycerin sublingual as needed Lasix 40 mg p.o. twice daily Avoiding JANA for fear of worsening creatinine ASSESSMENT/PLAN: Impression and plan: 1. Shortness of breath - PFTs reveal severe restrictive lung disease. CT chest reveals interstitial lung disease, mild. Breathing has improved in general. Patient may be discharged home today. I will discuss with Dr. Garcia his preference on medications prior to discharge 2. Coronary artery disease - see above. No complaints of angina 3. Atrial fibrillation - see above. Rate controlled. 4. History of ischemic cardiomyopathy - he is not volume overloaded on exam. This is not CHF. 5. Hypertension - adequately controlled. 6. Chronic renal insufficiency, STAGE IV - appears to be somewhat stable. 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 Polanco, labs CBC & BMP) Discharge Plan - Discharge Data Disposition: Disch To Home/Self Care Condition at Discharge: Stable Discharge Diet: diabetic diet, heart healthy Activity: resume usual activities as tolerated Hygiene: no restrictions Weight Bearing at Discharge: full weight bearing Contact your physician if you experience:: fever over 101, Nausea/Vomiting, Shortness of breath - Discharge Medications New Nebivolol [Bystolic] 20 mg PO DAILY #30 tablet Skin Healing Oint (Aquaphor) [Aquaphor] 1 applic TOP PRN PRN applic PRN Reason: Dry Skin Gentamicin 0.1% Oint [Garamycin 0.1% Oint] 1 applic TOP TID #0 applic Continue Pramipexole [Mirapex] 1 mg PO BEDTIME Cyclobenzaprine [Flexeril] 5 mg PO TID PRN #30 tablet PRN Reason: spasm Isosorbide Mononitrate [Imdur] 30 mg PO DAILY #30 tablet Atorvastatin [Lipitor] 80 mg PO BEDTIME #30 tablet Nitroglycerin Sl Tab [Nitrostat] 0.4 mg SL Q5M PRN #0 tablet PRN Reason: Chest Pain Pantoprazole Tab [Protonix Tab] 40 mg PO DAILY #30 tablet hydrALAZINE TAB [Apresoline Tab] 25 mg PO TID Clopidogrel [Plavix] 75 mg PO DAILY Furosemide Tab [Lasix Tab] 40 mg PO DAILY Benzonatate [Tessalon] 200 mg PO TID PRN PRN Reason: Cough clonazePAM [Clonazepam] 1 mg PO BEDTIME PRN PRN Reason: Anxiety Insulin Aspart Prot/Insuln Asp [NovoLOG Mix 70-30 FlexPen] 74 unit SUBCUT QAM Aspirin EC Tab 325 mg PO DAILY Insulin Aspart Prot/Insuln Asp [NovoLOG Mix 70-30 FlexPen] 32 unit SUBCUT BEDTIME metOLazone [Metolazone] 2.5 mg PO DAILY PRN PRN Reason: Edema Glimepiride 6 mg PO DAILY Potassium Chloride 10 meq PO BID Probenecid 500 mg PO BID W/MEALS Donepezil HCl 5 mg PO DAILY cloNIDine HCl [Clonidine HCl] 0.1 mg PO DAILY PRN PRN Reason: Blood Pressure-Decreased Tamsulosin [Flomax] 0.4 mg PO DAILY Discontinued Carvedilol [Coreg] 25 mg PO BID #60 tablet - Follow Up or Referral Follow Up: Jb Garcia MD [Physician] - 03/28/17 2:45 pm Juani Polanco MD [Physician] - ([address] Polanco, labs CBC & BMP) - Forms/Instructions Additional Discharge Instructions: Please ask patient to resume his previous insulin regimen Exam - Constitutional Vitals: Period Temp Pulse Resp BP Sys/Burden Pulse Ox Last 24 Hr 97.4 F-99.3 F 67-79 16-22 119-174/67-81 92-96 Exam: General: Appears well with no apparent distress. Pleasant and cooperative. Appears comfortable. HEENT: PERRL, normocephalic, atraumatic. Mucous membranes moist. No jaundice noted. Conjunctiva moist and clear, sclerae anicteric. Neck: No JVD/HJR, no thyromegaly or lymphadenopathy noted. No carotid bruit appreciated. Cardiac: Irregular rate and rhythm. No murmur rub or gallop. PMI is nondisplaced. Lungs: Clear to auscultation without accessory muscle use to assist the respiratory pattern. Not requiring oxygen. Abdomen: Soft, bowel sounds normoactive. Nontender and nondistended. No abdominal bruit or thrill noted. No masses noted. Musculoskeletal: No fluid collection. Decreased range of motion is noted. Extremities: No clubbing, cyanosis noted. No edema noted. Upper extremity pulses 2+. Lower extremity pulses 2+. Capillary refill less than 3 seconds. Dressing intact to the middle toe on the left foot. Skin: No unusual lesions or rashes. No skin breakdown appreciated. Neuro: Awake, alert and oriented 3. Moves all extremities well without hemiparesis or paralysis. No essential tremor is appreciated. Discharge Results Labs on day of discharge: Labs from last 24 hours 02/16/17 02/16/1702/16/17 07:56 04:49 04:49 WBC RBC Hgb Hct MCV MCH MCHC RDW Plt Count MPV Neut % (Auto) Lymph % (Auto) [place] % (Auto) Eos % (Auto) Baso % (Auto) Neut # (Auto) Lymph # (Auto) [place] # (Auto) Eos # (Auto) Baso # (Auto) Immature Gran % Nucleated RBC % Immature Gran # Nucleated RBCs # Immature Plt Fraction Sodium 140 Potassium 3.8 Chloride 102 Carbon Dioxide 32 Anion Gap 9.8 BUN 27 H Creatinine 1.80 H GFR Calculation 44 BUN/Creatinine Ratio 15.00 Glucose 73 L POC Glucose 80 Calculated Osmolality 282.4 Uric Acid 9.3 H Calcium 9.2 Magnesium 2.2 B-Natriuretic Peptide 02/16/17 02/15/17 02/15/17 04:49 19:53 16:07 WBC 7.0 RBC 4.45 Hgb 13.6 L Hct 39.2 L MCV 88.1 MCH 31 MCHC 34.7 RDW 14.6 Plt Count 217 MPV 10.8 Neut % (Auto) 67.4 Lymph % (Auto) 17.2 L [place] % (Auto) 11.0 Eos % (Auto) 3.4 Baso % (Auto) 0.9 H Neut # (Auto) 4.7 Lymph # (Auto) 1.2 L [place] # (Auto) 0.8 Eos # (Auto) 0.2 Baso # (Auto) 0.1 Immature Gran % 0.1 Nucleated RBC % 0.0 Immature Gran # 0.01 Nucleated RBCs # 0.00 Immature Plt Fraction 0.0 Sodium Potassium Chloride Carbon Dioxide Anion Gap BUN Creatinine GFR Calculation BUN/Creatinine Ratio Glucose POC Glucose 166 H 49 L* Calculated Osmolality Uric Acid Calcium Magnesium B-Natriuretic Peptide 02/15/17 02/15/17 13:43 11:01 WBC RBC Hgb Hct MCV MCH MCHC RDW Plt Count MPV Neut % (Auto) Lymph % (Auto) [place] % (Auto) Eos % (Auto) Baso % (Auto) Neut # (Auto) Lymph # (Auto) [place] # (Auto) Eos # (Auto) Baso # (Auto) Immature Gran % Nucleated RBC % Immature Gran # Nucleated RBCs # Immature Plt Fraction Sodium Potassium Chloride Carbon Dioxide Anion Gap BUN Creatinine GFR Calculation BUN/Creatinine Ratio Glucose POC Glucose 245 H Calculated Osmolality Uric Acid Calcium Magnesium B-Natriuretic Peptide 288 H DS: Provider Consults: 02/14/17 11:19 Consult to Physician [CONS] Routine Comment: Consulting Provider: Consult to Specialist Group: Pulmonology When should Consulting Provider be notified: Now Person Notified: Moriah Date Notified: 02/15/17 Time Notified: 09:20 Consult Notification Comment: SOB. Susp. COPD. Dr. Garcia or his coverage 02/14/17 14:42 Consult to Physician [CONS] Routine Comment: eval of right 2nd toe Consulting Provider: Cheng Stoll Person Notified: Guadalupe Date Notified: 02/14/17 Time Notified: 15:00 Expected date of discharge: 02/16/17 Abhijit Ayala Bonnie E, NP, personally performed the services described in this documentation, ascribed by America Ponce NP in my presence, and it is both accurate and complete .
== END 2017-02-16 13:00 | disposition home or self-care (01) ==
LOC: N.EDINP 11:53 → N.ED 11:53 → N.TELES 14:39
PROVIDERS: ADMIT Internal Medicine Cardiovascular Disease; ATTEND Internal Medicine Cardiovascular Disease

== ENCOUNTER 2019-05-19 15:41 | Inpatient (IN) ==
[2019-05-19 16:06] LABS: Basophils # 0.1 10*3/uL (0.0-0.2); Basophils % 0.8 % (0.0-0.8); Eosinophils # 0.1 10*3/uL (0.0-0.87); Eosinophils % 1.8 % (0.00-10.9); Hemoglobin 14.7 GM/DL (14.0-18.0); Immature Granulocytes % 0.5 %; Immature Granulocytes Absolute 0.03 #; Lymphocytes # 0.9 10*3/uL (1.4-4.0); Lymphocytes % 13.1 % (21.2-54.2); Mean Corpuscular HGB Conc 33.4 GM/DL (32-36); Mean Corpuscular Volume 83.8 FL (87-102); Mean Platelet Volume 9.7 FL (9.6-12.0); Monocytes % 8.5 % (1.7-12.7); Neutrophils % 75.3 % (38.7-73.9); Platelet Count 262 T/CUMM (130-400); Red Blood Count 5.25 MC/CUMM (3.8-5.5); Red Cell Distribution Width 16.6 % (9.3-17.3); White Blood Count 6.6 T/CUMM (4-12)
[2019-05-19 16:31] LABS: PT Patient Result 11.1 SECS (9.6-12.2)
[2019-05-19 16:32] LABS: Albumin 2.7 G/DL (3.4-5.0); Bilirubin,Total 0.4 MG/DL (0.2-1.0); Osmolality,Calculated 295.2 MOS/KG (273-304)
[2019-05-19] MEDS ORDERED: VANCOMYCIN INJ 1,000 MG in SODIUM CHLORIDE 0.9% 250 ML IV STA (17:57)
[2019-05-19] MEDS ORDERED: LEVOFLOXACIN INJ 500 MG in PREMIX 1 EACH IV STA (17:57)
[2019-05-19] MEDS ORDERED: ACETAMINOPHEN 325 MG TABLET PO PRN (17:58)
[2019-05-19] MEDS ORDERED: GLUCAGON 1 MG VIAL IM PRN (17:58)
[2019-05-19] MEDS ORDERED: DEXTROSE 10% 250 ML BAG IV PRN (17:58)
[2019-05-19] MEDS ORDERED: ONDANSETRON 4 MG/2 ML VIAL IV PRN (17:58)
[2019-05-19] MEDS ORDERED: BENZONATATE 100 MG CAPSULE PO PRN (18:02)
[2019-05-19] MEDS: SODIUM CHLORIDE 0.45% 1,000 ML IV SCH (20:37)
[2019-05-19] MEDS: LEVOFLOXACIN INJ 250 MG in PREMIX 1 EACH IV SCH (20:38)
[2019-05-19] MEDS ORDERED: INSULIN ASP PRT INSULIN ASPART SUBCUT SCH (21:00)
[2019-05-19] MEDS: MELATONIN 3 MG TABLET PO SCH (21:22)
[2019-05-19] MEDS: clonazePAM 0.5 MG TABLET PO SCH (21:22)
[2019-05-19] MEDS: DOCUSATE SODIUM 100 MG CAPSULE PO SCH (21:22)
[2019-05-19] MEDS: ENOXAPARIN 30 MG/0.3 ML SYRINGE SUBCUT SCH (21:23)
[2019-05-19] MEDS: FUROSEMIDE 40 MG TABLET PO SCH (21:23)
[2019-05-19] MEDS: LATANOPROST 0.005% OPH SOLN 2.5 ML BOTTLE BOTH EYES SCH (21:23)
[2019-05-19] MEDS: INSULIN LISPRO 100 UNIT/ML SUBCUT SCH (21:24)
[2019-05-20] MEDS ORDERED: PROBENECID 500 MG TABLET PO SCH (08:00)
[2019-05-20] MEDS: NEBIVOLOL 10 MG TABLET PO SCH (09:20)
[2019-05-20] MEDS: FUROSEMIDE 40 MG TABLET PO SCH ×2 (09:20→21:07)
[2019-05-20] MEDS: POTASSIUM CHLORIDE 10 MEQ TABLET PO SCH (09:20)
[2019-05-20] MEDS: INSULIN LISPRO 100 UNIT/ML SUBCUT SCH ×4 (09:20→21:11)
[2019-05-20] MEDS: METHOCARBAMOL 750 MG TABLET PO SCH ×2 (09:20→16:18)
[2019-05-20] MEDS: MULTIVITAMIN (CENTRUM) TABLET PO SCH (09:20)
[2019-05-20] MEDS: DOCUSATE SODIUM 100 MG CAPSULE PO SCH ×2 (09:20→21:08)
[2019-05-20] MEDS: TAMSULOSIN 0.4 MG CAPSULE PO SCH (09:20)
[2019-05-20] MEDS: PANTOPRAZOLE 40 MG TABLET PO SCH (09:21)
[2019-05-20 10:15] LABS: Basophils # 0.1 10*3/uL (0.0-0.2); Basophils % 0.8 % (0.0-0.8); Eosinophils # 0.2 10*3/uL (0.0-0.87); Hematocrit 32.1 VOL% (42.0-52.0); Immature Granulocytes % 0.7 %; Immature Granulocytes Absolute 0.05 #; Lymphocytes # 0.9 10*3/uL (1.4-4.0); Lymphocytes % 11.4 % (21.2-54.2); Mean Corpuscular Volume 84.9 FL (87-102); Neutrophils % 75.1 % (38.7-73.9); Platelet Count 312 T/CUMM (130-400); Red Blood Count 3.78 MC/CUMM (3.8-5.5); Red Cell Distribution Width 16.4 % (9.3-17.3); White Blood Count 7.7 T/CUMM (4-12)
[2019-05-20 10:17] LABS: Hemoglobin 10.6 GM/DL (14.0-18.0)
[2019-05-20 10:28] LABS: Calcium 8.7 MG/DL (8.5-10.1); Osmolality,Calculated 293.1 MOS/KG (273-304)
[2019-05-20] MEDS: SODIUM CHLORIDE 0.45% 1,000 ML IV SCH ×2 (14:27→16:18)
[2019-05-20] MEDS: LEVOFLOXACIN INJ 250 MG in PREMIX 1 EACH IV SCH (18:24)
[2019-05-20] MEDS: MELATONIN 3 MG TABLET PO SCH (21:04)
[2019-05-20] MEDS: clonazePAM 0.5 MG TABLET PO SCH (21:07)
[2019-05-20] MEDS: LATANOPROST 0.005% OPH SOLN 2.5 ML BOTTLE BOTH EYES SCH (21:10)
[2019-05-20] MEDS: ENOXAPARIN 30 MG/0.3 ML SYRINGE SUBCUT SCH (21:12)
[2019-05-20] MEDS: VANCOMYCIN INJ 1,500 MG in SODIUM CHLORIDE 0.9% 500 ML IV SCH (21:14)
[2019-05-21 04:58] LABS: Calcium 9.2 MG/DL (8.5-10.1)
[2019-05-21] MEDS: INSULIN LISPRO 100 UNIT/ML SUBCUT SCH ×4 (08:39→21:43)
[2019-05-21] MEDS: TAMSULOSIN 0.4 MG CAPSULE PO SCH (09:14)
[2019-05-21] MEDS: METHOCARBAMOL 750 MG TABLET PO SCH ×2 (09:15→17:16)
[2019-05-21] MEDS: POTASSIUM CHLORIDE 10 MEQ TABLET PO SCH (09:16)
[2019-05-21] MEDS: PANTOPRAZOLE 40 MG TABLET PO SCH (09:16)
[2019-05-21] MEDS: MULTIVITAMIN (CENTRUM) TABLET PO SCH (09:16)
[2019-05-21] MEDS: FUROSEMIDE 40 MG TABLET PO SCH ×2 (09:16→20:29)
[2019-05-21] MEDS: DOCUSATE SODIUM 100 MG CAPSULE PO SCH ×2 (09:16→20:29)
[2019-05-21] MEDS: NEBIVOLOL 10 MG TABLET PO SCH (09:26)
[2019-05-21] MEDS: SODIUM CHLORIDE 0.45% 1,000 ML IV SCH ×2 (10:00→23:21)
[2019-05-21] MEDS: metOLazone 5 MG TABLET PO SCH (18:08)
[2019-05-21] MEDS: LEVOFLOXACIN INJ 250 MG in PREMIX 1 EACH IV SCH (18:10)
[2019-05-21] MEDS: MELATONIN 3 MG TABLET PO SCH (20:28)
[2019-05-21] MEDS: clonazePAM 0.5 MG TABLET PO SCH (20:29)
[2019-05-21] MEDS: ENOXAPARIN 30 MG/0.3 ML SYRINGE SUBCUT SCH (20:29)
[2019-05-21] MEDS: LATANOPROST 0.005% OPH SOLN 2.5 ML BOTTLE BOTH EYES SCH (20:29)
[2019-05-22 05:55] LABS: Basophils # 0.1 10*3/uL (0.0-0.2); Basophils % 0.9 % (0.0-0.8); Eosinophils # 0.2 10*3/uL (0.0-0.87); Eosinophils % 1.9 % (0.00-10.9); Hematocrit 33.5 VOL% (42.0-52.0); Hemoglobin 10.8 GM/DL (14.0-18.0); Immature Granulocytes % 0.7 %; Immature Granulocytes Absolute 0.06 #; Lymphocytes # 1.3 10*3/uL (1.4-4.0); Lymphocytes % 14.4 % (21.2-54.2); Mean Corpuscular HGB Conc 32.2 GM/DL (32-36); Mean Corpuscular Volume 86.8 FL (87-102); Mean Platelet Volume 9.9 FL (9.6-12.0); Monocytes % 9.6 % (1.7-12.7); Neutrophils % 72.5 % (38.7-73.9); Platelet Count 317 T/CUMM (130-400); Red Blood Count 3.86 MC/CUMM (3.8-5.5); Red Cell Distribution Width 16.4 % (9.3-17.3); White Blood Count 9.2 T/CUMM (4-12)
[2019-05-22 06:10] LABS: Calcium 9.8 MG/DL (8.5-10.1); Osmolality,Calculated 291.8 MOS/KG (273-304)
[2019-05-22] MEDS: METHOCARBAMOL 750 MG TABLET PO SCH ×2 (07:40→17:29)
[2019-05-22] MEDS: INSULIN LISPRO 100 UNIT/ML SUBCUT SCH ×4 (07:40→20:09)
[2019-05-22] MEDS: MULTIVITAMIN (CENTRUM) TABLET PO SCH (09:05)
[2019-05-22] MEDS: DOCUSATE SODIUM 100 MG CAPSULE PO SCH ×2 (09:05→20:06)
[2019-05-22] MEDS: NEBIVOLOL 10 MG TABLET PO SCH (09:05)
[2019-05-22] MEDS: POTASSIUM CHLORIDE 10 MEQ TABLET PO SCH (09:06)
[2019-05-22] MEDS: TAMSULOSIN 0.4 MG CAPSULE PO SCH (09:06)
[2019-05-22] MEDS: PANTOPRAZOLE 40 MG TABLET PO SCH (09:06)
[2019-05-22] MEDS: FUROSEMIDE 40 MG TABLET PO SCH ×2 (09:06→20:07)
[2019-05-22] MEDS: LEVOFLOXACIN INJ 250 MG in PREMIX 1 EACH IV SCH (17:30)
[2019-05-22] MEDS: ENOXAPARIN 30 MG/0.3 ML SYRINGE SUBCUT SCH (20:06)
[2019-05-22] MEDS: MELATONIN 3 MG TABLET PO SCH (20:07)
[2019-05-22] MEDS: clonazePAM 0.5 MG TABLET PO SCH (20:07)
[2019-05-22] MEDS: VANCOMYCIN INJ 1,500 MG in SODIUM CHLORIDE 0.9% 500 ML IV SCH (20:08)
[2019-05-22] MEDS: LATANOPROST 0.005% OPH SOLN 2.5 ML BOTTLE BOTH EYES SCH (20:09)
[2019-05-22] MEDS: SODIUM CHLORIDE 0.45% 1,000 ML IV SCH (20:16)
[2019-05-22] MEDS: MAGNESIUM HYDROXIDE SUSP 30 ML UDCUP PO PRN (20:39)
[2019-05-23 06:40] LABS: Basophils # 0.1 10*3/uL (0.0-0.2); Basophils % 0.9 % (0.0-0.8); Eosinophils # 0.2 10*3/uL (0.0-0.87); Eosinophils % 2.1 % (0.00-10.9); Hematocrit 33.5 VOL% (42.0-52.0); Hemoglobin 10.9 GM/DL (14.0-18.0); Immature Granulocytes % 0.9 %; Immature Granulocytes Absolute 0.08 #; Lymphocytes # 1.1 10*3/uL (1.4-4.0); Mean Corpuscular HGB Conc 32.5 GM/DL (32-36); Mean Corpuscular Volume 86.3 FL (87-102); Mean Platelet Volume 10.2 FL (9.6-12.0); Monocytes % 8.8 % (1.7-12.7); Neutrophils % 75.3 % (38.7-73.9); Platelet Count 300 T/CUMM (130-400); Red Blood Count 3.88 MC/CUMM (3.8-5.5); Red Cell Distribution Width 16.1 % (9.3-17.3); White Blood Count 8.8 T/CUMM (4-12)
[2019-05-23 07:19] LABS: Calcium 9.3 MG/DL (8.5-10.1); Osmolality,Calculated 291.1 MOS/KG (273-304)
[2019-05-23] MEDS: INSULIN LISPRO 100 UNIT/ML SUBCUT SCH ×4 (08:23→21:13)
[2019-05-23] MEDS: METHOCARBAMOL 750 MG TABLET PO SCH ×2 (09:16→17:16)
[2019-05-23] MEDS: NEBIVOLOL 10 MG TABLET PO SCH (09:16)
[2019-05-23] MEDS: PANTOPRAZOLE 40 MG TABLET PO SCH (09:16)
[2019-05-23] MEDS: DOCUSATE SODIUM 100 MG CAPSULE PO SCH ×2 (09:17→21:13)
[2019-05-23] MEDS: FUROSEMIDE 40 MG TABLET PO SCH ×2 (09:17→21:13)
[2019-05-23] MEDS: POTASSIUM CHLORIDE 10 MEQ TABLET PO SCH (09:17)
[2019-05-23] MEDS: MAGNESIUM HYDROXIDE SUSP 30 ML UDCUP PO PRN (09:17)
[2019-05-23] MEDS: TAMSULOSIN 0.4 MG CAPSULE PO SCH (09:17)
[2019-05-23] MEDS: MULTIVITAMIN (CENTRUM) TABLET PO SCH (09:20)
[2019-05-23] MEDS: SODIUM CHLORIDE 0.45% 1,000 ML IV SCH (17:19)
[2019-05-23] MEDS: metOLazone 5 MG TABLET PO SCH (17:58)
[2019-05-23] MEDS: MELATONIN 3 MG TABLET PO SCH (21:13)
[2019-05-23] MEDS: ENOXAPARIN 30 MG/0.3 ML SYRINGE SUBCUT SCH (21:13)
[2019-05-23] MEDS: clonazePAM 0.5 MG TABLET PO SCH (21:13)
[2019-05-23] MEDS: LATANOPROST 0.005% OPH SOLN 2.5 ML BOTTLE BOTH EYES SCH (21:15)
[2019-05-24 04:18] LABS: Basophils # 0.1 10*3/uL (0.0-0.2); Basophils % 0.8 % (0.0-0.8); Eosinophils # 0.2 10*3/uL (0.0-0.87); Eosinophils % 2.5 % (0.00-10.9); Hematocrit 31.4 VOL% (42.0-52.0); Immature Granulocytes % 0.8 %; Immature Granulocytes Absolute 0.07 #; Lymphocytes # 1.1 10*3/uL (1.4-4.0); Mean Corpuscular HGB Conc 31.8 GM/DL (32-36); Mean Corpuscular Volume 87.7 FL (87-102); Mean Platelet Volume 10.4 FL (9.6-12.0); Monocytes % 9.3 % (1.7-12.7); Neutrophils % 73.6 % (38.7-73.9); Platelet Count 307 T/CUMM (130-400); Red Blood Count 3.58 MC/CUMM (3.8-5.5); Red Cell Distribution Width 16.1 % (9.3-17.3); White Blood Count 8.8 T/CUMM (4-12)
[2019-05-24 04:41] LABS: Calcium 9.2 MG/DL (8.5-10.1)
[2019-05-24] MEDS: INSULIN LISPRO 100 UNIT/ML SUBCUT SCH ×4 (07:45→21:49)
[2019-05-24] MEDS: MAGNESIUM HYDROXIDE SUSP 30 ML UDCUP PO PRN (09:21)
[2019-05-24] MEDS: NEBIVOLOL 10 MG TABLET PO SCH (09:22)
[2019-05-24] MEDS: PANTOPRAZOLE 40 MG TABLET PO SCH (09:22)
[2019-05-24] MEDS: POTASSIUM CHLORIDE 10 MEQ TABLET PO SCH (09:22)
[2019-05-24] MEDS: FUROSEMIDE 40 MG TABLET PO SCH ×2 (09:22→21:49)
[2019-05-24] MEDS: DOCUSATE SODIUM 100 MG CAPSULE PO SCH ×2 (09:22→21:49)
[2019-05-24] MEDS: MULTIVITAMIN (CENTRUM) TABLET PO SCH (09:22)
[2019-05-24] MEDS: METHOCARBAMOL 750 MG TABLET PO SCH ×2 (09:22→17:17)
[2019-05-24] MEDS: TAMSULOSIN 0.4 MG CAPSULE PO SCH (09:23)
[2019-05-24] MEDS: SODIUM CHLORIDE 0.45% 1,000 ML IV SCH ×3 (09:26→14:43)
[2019-05-24] MEDS: clonazePAM 0.5 MG TABLET PO SCH (21:49)
[2019-05-24] MEDS: MELATONIN 3 MG TABLET PO SCH (21:49)
[2019-05-24] MEDS: ENOXAPARIN 30 MG/0.3 ML SYRINGE SUBCUT SCH (21:54)
[2019-05-24] MEDS: LATANOPROST 0.005% OPH SOLN 2.5 ML BOTTLE BOTH EYES SCH (22:02)
[2019-05-25] MEDS: SODIUM CHLORIDE 0.45% 1,000 ML IV SCH (00:35)
[2019-05-25 05:31] LABS: Basophils # 0.1 10*3/uL (0.0-0.2); Basophils % 0.9 % (0.0-0.8); Eosinophils # 0.2 10*3/uL (0.0-0.87); Eosinophils % 3.1 % (0.00-10.9); Hematocrit 32.3 VOL% (42.0-52.0); Hemoglobin 10.6 GM/DL (14.0-18.0); Immature Granulocytes % 0.5 %; Immature Granulocytes Absolute 0.04 #; Mean Corpuscular HGB Conc 32.8 GM/DL (32-36); Mean Corpuscular Volume 85.7 FL (87-102); Monocytes % 7.9 % (1.7-12.7); Neutrophils % 74.6 % (38.7-73.9); Platelet Count 311 T/CUMM (130-400); Red Blood Count 3.77 MC/CUMM (3.8-5.5); Red Cell Distribution Width 15.9 % (9.3-17.3); White Blood Count 7.8 T/CUMM (4-12)
[2019-05-25 05:56] LABS: Calcium 9.6 MG/DL (8.5-10.1); Osmolality,Calculated 290.8 MOS/KG (273-304)
[2019-05-25] MEDS: METHOCARBAMOL 750 MG TABLET PO SCH (08:48)
[2019-05-25] MEDS: MULTIVITAMIN (CENTRUM) TABLET PO SCH (08:48)
[2019-05-25] MEDS: POTASSIUM CHLORIDE 10 MEQ TABLET PO SCH (08:48)
[2019-05-25] MEDS: PANTOPRAZOLE 40 MG TABLET PO SCH (08:48)
[2019-05-25] MEDS: FUROSEMIDE 40 MG TABLET PO SCH (08:48)
[2019-05-25] MEDS: DOCUSATE SODIUM 100 MG CAPSULE PO SCH (08:48)
[2019-05-25] MEDS: TAMSULOSIN 0.4 MG CAPSULE PO SCH (08:48)
[2019-05-25] MEDS: NEBIVOLOL 10 MG TABLET PO SCH (08:48)
[2019-05-25] MEDS: INSULIN LISPRO 100 UNIT/ML SUBCUT SCH ×2 (08:50→11:47)
[2019-05-25 12:00] VITALS: BP 135/52
== END 2019-05-25 13:30 | DRG 300 ==
LOC: EDBD → EDUNIT# → N.ED 15:41 → N.EDINP 17:58 → N.3E 18:24
PROVIDERS: ADMIT Family Medicine; ATTEND Family Medicine

== ENCOUNTER 2019-06-21 09:29 | Inpatient (IN) ==
[2019-06-21] MEDS ORDERED: ALBUTEROL/IPRATROPIUM 3 ML NEB RESP TX PRN (11:18)
[2019-06-21] MEDS ORDERED: ONDANSETRON 4 MG/2 ML VIAL IV PRN (11:18)
[2019-06-21] MEDS ORDERED: ACETAMINOPHEN 325 MG TABLET PO PRN (11:18)
[2019-06-21] MEDS ORDERED: BENZONATATE 100 MG CAPSULE PO PRN (11:21)
[2019-06-21] MEDS ORDERED: traMADol 50 MG TABLET PO PRN (11:22)
[2019-06-21] MEDS ORDERED: GLUCAGON 1 MG VIAL IM PRN (11:30)
[2019-06-21] MEDS ORDERED: DEXTROSE 10% 250 ML BAG IV PRN (11:30)
[2019-06-21 11:49] LABS: Basophils # 0.1 10*3/uL (0.0-0.2); Basophils % 0.7 % (0.0-0.8); Eosinophils # 0.3 10*3/uL (0.0-0.87); Eosinophils % 2.3 % (0.00-10.9); Hemoglobin 10.5 GM/DL (14.0-18.0); Immature Granulocytes % 0.9 %; Immature Granulocytes Absolute 0.11 #; Mean Corpuscular HGB Conc 32.8 GM/DL (32-36); Mean Corpuscular Volume 84.9 FL (87-102); Mean Platelet Volume 9.4 FL (9.6-12.0); Neutrophils % 81.1 % (38.7-73.9); Platelet Count 420 T/CUMM (130-400); Red Blood Count 3.77 MC/CUMM (3.8-5.5); Red Cell Distribution Width 16.9 % (9.3-17.3); White Blood Count 12.8 T/CUMM (4-12)
[2019-06-21 12:05] LABS: Calcium 9.6 MG/DL (8.5-10.1); Osmolality,Calculated 286.4 MOS/KG (273-304)
[2019-06-21] MEDS: INSULIN LISPRO 100 UNIT/ML SUBCUT SCH ×2 (13:40→16:58)
[2019-06-21] MEDS: LACTATED RINGERS 1,000 ML IV SCH (14:10)
[2019-06-21] MEDS: PIPERACILLIN/TAZOBACTAM 3,375 MG in SODIUM CHLORIDE 0.9% 100 ML IV SCH ×2 (14:10→20:21)
[2019-06-21] MEDS: SODIUM HYPOCHLORITE 0.25% IRRIG 473 ML BOTTLE TOP SCH (16:59)
[2019-06-21] MEDS: METHOCARBAMOL 750 MG TABLET PO SCH (17:16)
[2019-06-21] MEDS: MELATONIN 3 MG TABLET PO SCH (20:30)
[2019-06-21] MEDS: clonazePAM 0.5 MG TABLET PO SCH (20:30)
[2019-06-21] MEDS: FUROSEMIDE 20 MG TABLET PO SCH (20:31)
[2019-06-21] MEDS: PROBENECID 500 MG TABLET PO SCH (20:31)
[2019-06-21] MEDS: LATANOPROST 0.005% OPH SOLN 2.5 ML BOTTLE BOTH EYES SCH (20:31)
[2019-06-22] MEDS: PIPERACILLIN/TAZOBACTAM 3,375 MG in SODIUM CHLORIDE 0.9% 100 ML IV SCH ×2 (03:35→19:20)
[2019-06-22] MEDS: MORPHINE 4 MG/1 ML VIAL IV PRN ×5 (03:58→20:40)
[2019-06-22] MEDS: LACTATED RINGERS 1,000 ML IV SCH ×4 (05:55→19:20)
[2019-06-22] MEDS: LINEZOLID INJ 600 MG in PREMIX 1 EACH IV SCH ×2 (08:31→17:59)
[2019-06-22] MEDS: INSULIN LISPRO 100 UNIT/ML SUBCUT SCH ×3 (10:13→16:50)
[2019-06-22] MEDS: PROBENECID 500 MG TABLET PO SCH ×2 (10:14→21:58)
[2019-06-22] MEDS: SODIUM HYPOCHLORITE 0.25% IRRIG 473 ML BOTTLE TOP SCH (10:15)
[2019-06-22] MEDS ORDERED: LIDOCAINE 1% 20 ML VIAL ONE (10:55)
[2019-06-22] MEDS ORDERED: LIDOCAINE 1%/EPI INJ 20 ML VIAL ONE (10:55)
[2019-06-22] MEDS ORDERED: PROPOFOL 200 MG/20 ML VIAL IV ONE (11:22)
[2019-06-22] MEDS ORDERED: LIDOCAINE 2% 5 ML VIAL ONE (11:22)
[2019-06-22] MEDS ORDERED: MIDAZOLAM 2 MG/2 ML VIAL ONE (11:24)
[2019-06-22] MEDS ORDERED: fentaNYL 100 MCG/2 ML VIAL ONE (11:24)
[2019-06-22] MEDS ORDERED: KETAMINE 500 MG/10 ML VIAL ONE (11:24)
[2019-06-22] MEDS: MULTIVITAMIN (CENTRUM) TABLET PO SCH (12:51)
[2019-06-22] MEDS: METHOCARBAMOL 750 MG TABLET PO SCH ×2 (12:51→16:51)
[2019-06-22] MEDS: NEBIVOLOL 10 MG TABLET PO SCH (12:51)
[2019-06-22] MEDS: CETIRIZINE 10 MG TABLET PO SCH (12:51)
[2019-06-22] MEDS: FUROSEMIDE 20 MG TABLET PO SCH ×2 (12:52→20:42)
[2019-06-22] MEDS: metOLazone 5 MG TABLET PO SCH (12:52)
[2019-06-22] MEDS: POTASSIUM CHLORIDE 10 MEQ TABLET PO SCH (12:52)
[2019-06-22] MEDS: TAMSULOSIN 0.4 MG CAPSULE PO SCH (12:52)
[2019-06-22] MEDS: PANTOPRAZOLE 40 MG TABLET PO SCH (12:52)
[2019-06-22] MEDS ORDERED: hydrALAZINE 20 MG/1 ML VIAL IM ONE (15:46)
[2019-06-22] MEDS ORDERED: hydrALAZINE 20 MG/1 ML VIAL IV ONE (15:53)
[2019-06-22] MEDS: clonazePAM 0.5 MG TABLET PO SCH (20:42)
[2019-06-22] MEDS: MELATONIN 3 MG TABLET PO SCH (20:42)
[2019-06-22] MEDS: LATANOPROST 0.005% OPH SOLN 2.5 ML BOTTLE BOTH EYES SCH (21:48)
[2019-06-23] MEDS: MORPHINE 4 MG/1 ML VIAL IV PRN ×3 (01:07→10:53)
[2019-06-23] MEDS: LACTATED RINGERS 1,000 ML IV SCH ×2 (03:13→16:40)
[2019-06-23 05:46] LABS: Basophils # 0.1 10*3/uL (0.0-0.2); Basophils % 0.5 % (0.0-0.8); Eosinophils # 0.1 10*3/uL (0.0-0.87); Eosinophils % 1.2 % (0.00-10.9); Hematocrit 27.7 VOL% (42.0-52.0); Hemoglobin 8.9 GM/DL (14.0-18.0); Immature Granulocytes % 0.4 %; Immature Granulocytes Absolute 0.05 #; Lymphocytes # 1.2 10*3/uL (1.4-4.0); Lymphocytes % 10.7 % (21.2-54.2); Mean Corpuscular HGB Conc 32.1 GM/DL (32-36); Mean Corpuscular Volume 85.8 FL (87-102); Mean Platelet Volume 9.7 FL (9.6-12.0); Monocytes % 9.2 % (1.7-12.7); Platelet Count 389 T/CUMM (130-400); Red Blood Count 3.23 MC/CUMM (3.8-5.5); Red Cell Distribution Width 16.4 % (9.3-17.3); White Blood Count 11.2 T/CUMM (4-12)
[2019-06-23 06:05] LABS: Calcium 9.5 MG/DL (8.5-10.1); Osmolality,Calculated 282.2 MOS/KG (273-304)
[2019-06-23] MEDS: LINEZOLID INJ 600 MG in PREMIX 1 EACH IV SCH ×2 (06:15→18:26)
[2019-06-23] MEDS: PIPERACILLIN/TAZOBACTAM 3,375 MG in SODIUM CHLORIDE 0.9% 100 ML IV SCH ×2 (07:23→20:58)
[2019-06-23] MEDS: INSULIN LISPRO 100 UNIT/ML SUBCUT SCH ×3 (08:05→16:38)
[2019-06-23] MEDS: METHOCARBAMOL 750 MG TABLET PO SCH ×2 (08:54→16:12)
[2019-06-23] MEDS: POTASSIUM CHLORIDE 10 MEQ TABLET PO SCH (09:00)
[2019-06-23] MEDS: TAMSULOSIN 0.4 MG CAPSULE PO SCH (09:00)
[2019-06-23] MEDS: NEBIVOLOL 10 MG TABLET PO SCH (09:01)
[2019-06-23] MEDS: CETIRIZINE 10 MG TABLET PO SCH (09:01)
[2019-06-23] MEDS: PANTOPRAZOLE 40 MG TABLET PO SCH (09:02)
[2019-06-23] MEDS: FUROSEMIDE 20 MG TABLET PO SCH ×2 (09:02→20:59)
[2019-06-23] MEDS: MULTIVITAMIN (CENTRUM) TABLET PO SCH (09:02)
[2019-06-23] MEDS: PROBENECID 500 MG TABLET PO SCH ×2 (09:04→20:59)
[2019-06-23] MEDS: SODIUM HYPOCHLORITE 0.25% IRRIG 473 ML BOTTLE TOP SCH (10:52)
[2019-06-23] MEDS: MELATONIN 3 MG TABLET PO SCH (20:58)
[2019-06-23] MEDS: LATANOPROST 0.005% OPH SOLN 2.5 ML BOTTLE BOTH EYES SCH (20:59)
[2019-06-23] MEDS: clonazePAM 0.5 MG TABLET PO SCH (20:59)
[2019-06-24] MEDS: MORPHINE 4 MG/1 ML VIAL IV PRN ×2 (03:57→21:18)
[2019-06-24 05:17] LABS: Basophils # 0.1 10*3/uL (0.0-0.2); Basophils % 0.6 % (0.0-0.8); Eosinophils # 0.2 10*3/uL (0.0-0.87); Eosinophils % 1.9 % (0.00-10.9); Hematocrit 26.5 VOL% (42.0-52.0); Immature Granulocytes % 0.5 %; Immature Granulocytes Absolute 0.05 #; Lymphocytes # 0.9 10*3/uL (1.4-4.0); Lymphocytes % 8.4 % (21.2-54.2); Mean Corpuscular Volume 84.4 FL (87-102); Mean Platelet Volume 10.1 FL (9.6-12.0); Monocytes % 8.7 % (1.7-12.7); Neutrophils % 79.9 % (38.7-73.9); Platelet Count 408 T/CUMM (130-400); Red Blood Count 3.14 MC/CUMM (3.8-5.5); Red Cell Distribution Width 16.1 % (9.3-17.3); White Blood Count 10.6 T/CUMM (4-12)
[2019-06-24 05:34] LABS: Calcium 9.5 MG/DL (8.5-10.1); Osmolality,Calculated 278.5 MOS/KG (273-304)
[2019-06-24] MEDS: LINEZOLID INJ 600 MG in PREMIX 1 EACH IV SCH ×2 (06:22→18:16)
[2019-06-24] MEDS: INSULIN LISPRO 100 UNIT/ML SUBCUT SCH ×3 (08:04→16:26)
[2019-06-24] MEDS: NEBIVOLOL 10 MG TABLET PO SCH (08:05)
[2019-06-24] MEDS: FUROSEMIDE 20 MG TABLET PO SCH ×2 (08:05→21:12)
[2019-06-24] MEDS: POTASSIUM CHLORIDE 10 MEQ TABLET PO SCH (08:05)
[2019-06-24] MEDS: MULTIVITAMIN (CENTRUM) TABLET PO SCH (08:05)
[2019-06-24] MEDS: TAMSULOSIN 0.4 MG CAPSULE PO SCH (08:05)
[2019-06-24] MEDS: PIPERACILLIN/TAZOBACTAM 3,375 MG in SODIUM CHLORIDE 0.9% 100 ML IV SCH ×2 (08:05→21:07)
[2019-06-24] MEDS: METHOCARBAMOL 750 MG TABLET PO SCH ×2 (08:05→18:16)
[2019-06-24] MEDS: PANTOPRAZOLE 40 MG TABLET PO SCH (08:05)
[2019-06-24] MEDS: CETIRIZINE 10 MG TABLET PO SCH (08:05)
[2019-06-24] MEDS: LACTATED RINGERS 1,000 ML IV SCH (08:06)
[2019-06-24] MEDS: PROBENECID 500 MG TABLET PO SCH ×2 (08:06→21:12)
[2019-06-24] MEDS: SODIUM HYPOCHLORITE 0.25% IRRIG 473 ML BOTTLE TOP SCH (08:07)
[2019-06-24] MEDS: clonazePAM 0.5 MG TABLET PO SCH (21:11)
[2019-06-24] MEDS: MELATONIN 3 MG TABLET PO SCH (21:11)
[2019-06-24] MEDS: LATANOPROST 0.005% OPH SOLN 2.5 ML BOTTLE BOTH EYES SCH (21:12)
[2019-06-25] MEDS: LACTATED RINGERS 1,000 ML IV SCH ×4 (00:13→23:26)
[2019-06-25 05:56] LABS: Basophils # 0.1 10*3/uL (0.0-0.2); Basophils % 0.6 % (0.0-0.8); Eosinophils # 0.3 10*3/uL (0.0-0.87); Eosinophils % 2.2 % (0.00-10.9); Hematocrit 26.9 VOL% (42.0-52.0); Hemoglobin 9.1 GM/DL (14.0-18.0); Immature Granulocytes % 0.6 %; Immature Granulocytes Absolute 0.08 #; Lymphocytes # 1.1 10*3/uL (1.4-4.0); Mean Corpuscular HGB Conc 33.8 GM/DL (32-36); Mean Corpuscular Volume 84.6 FL (87-102); Mean Platelet Volume 9.8 FL (9.6-12.0); Monocytes % 7.9 % (1.7-12.7); Neutrophils % 79.7 % (38.7-73.9); Platelet Count 421 T/CUMM (130-400); Red Blood Count 3.18 MC/CUMM (3.8-5.5); Red Cell Distribution Width 15.9 % (9.3-17.3); White Blood Count 12.3 T/CUMM (4-12)
[2019-06-25 06:05] LABS: Calcium 9.5 MG/DL (8.5-10.1); Osmolality,Calculated 274.7 MOS/KG (273-304)
[2019-06-25] MEDS: LINEZOLID INJ 600 MG in PREMIX 1 EACH IV SCH ×2 (06:05→18:56)
[2019-06-25 06:19] LABS: Hypochromasia 1+; Platelet Estimate Adequate
[2019-06-25] MEDS: INSULIN LISPRO 100 UNIT/ML SUBCUT SCH ×3 (08:48→16:39)
[2019-06-25] MEDS: PIPERACILLIN/TAZOBACTAM 3,375 MG in SODIUM CHLORIDE 0.9% 100 ML IV SCH ×2 (08:50→20:58)
[2019-06-25] MEDS: CETIRIZINE 10 MG TABLET PO SCH (08:50)
[2019-06-25] MEDS: POTASSIUM CHLORIDE 10 MEQ TABLET PO SCH (08:50)
[2019-06-25] MEDS: PANTOPRAZOLE 40 MG TABLET PO SCH (08:50)
[2019-06-25] MEDS: FUROSEMIDE 20 MG TABLET PO SCH ×2 (08:50→20:58)
[2019-06-25] MEDS: NEBIVOLOL 10 MG TABLET PO SCH (08:50)
[2019-06-25] MEDS: TAMSULOSIN 0.4 MG CAPSULE PO SCH (08:50)
[2019-06-25] MEDS: METHOCARBAMOL 750 MG TABLET PO SCH ×2 (08:50→16:39)
[2019-06-25] MEDS: MULTIVITAMIN (CENTRUM) TABLET PO SCH (08:50)
[2019-06-25] MEDS: SODIUM HYPOCHLORITE 0.25% IRRIG 473 ML BOTTLE TOP SCH (10:15)
[2019-06-25] MEDS: PROBENECID 500 MG TABLET PO SCH ×2 (10:39→21:05)
[2019-06-25] MEDS: metOLazone 5 MG TABLET PO SCH (12:21)
[2019-06-25] MEDS: MORPHINE 4 MG/1 ML VIAL IV PRN ×2 (12:27→20:58)
[2019-06-25] MEDS: BISACODYL 5 MG TABLET PO PRN (17:30)
[2019-06-25] MEDS: MELATONIN 3 MG TABLET PO SCH (20:59)
[2019-06-25] MEDS: clonazePAM 0.5 MG TABLET PO SCH (20:59)
[2019-06-25] MEDS: LATANOPROST 0.005% OPH SOLN 2.5 ML BOTTLE BOTH EYES SCH (21:04)
[2019-06-26] MEDS: MORPHINE 4 MG/1 ML VIAL IV PRN ×3 (03:33→19:27)
[2019-06-26] MEDS: LINEZOLID INJ 600 MG in PREMIX 1 EACH IV SCH ×3 (06:22→19:08)
[2019-06-26] MEDS: PIPERACILLIN/TAZOBACTAM 3,375 MG in SODIUM CHLORIDE 0.9% 100 ML IV SCH ×2 (08:31→20:55)
[2019-06-26] MEDS: FUROSEMIDE 20 MG TABLET PO SCH ×2 (08:31→22:23)
[2019-06-26] MEDS: PANTOPRAZOLE 40 MG TABLET PO SCH (08:31)
[2019-06-26] MEDS: TAMSULOSIN 0.4 MG CAPSULE PO SCH (08:31)
[2019-06-26] MEDS: NEBIVOLOL 10 MG TABLET PO SCH (08:31)
[2019-06-26] MEDS: PROBENECID 500 MG TABLET PO SCH ×2 (09:24→22:23)
[2019-06-26] MEDS: SODIUM HYPOCHLORITE 0.25% IRRIG 473 ML BOTTLE TOP SCH (09:24)
[2019-06-26] MEDS: INSULIN LISPRO 100 UNIT/ML SUBCUT SCH ×3 (09:24→16:25)
[2019-06-26] MEDS: LACTATED RINGERS 1,000 ML IV SCH (09:25)
[2019-06-26] MEDS ORDERED: LIDOCAINE 1% 20 ML VIAL ONE (12:45)
[2019-06-26] MEDS: METHOCARBAMOL 750 MG TABLET PO SCH ×2 (13:16→16:25)
[2019-06-26] MEDS ORDERED: LIDOCAINE 2% 5 ML VIAL ONE (13:27)
[2019-06-26] MEDS ORDERED: PROPOFOL 200 MG/20 ML VIAL IV ONE (13:27)
[2019-06-26] MEDS ORDERED: fentaNYL 100 MCG/2 ML VIAL ONE (13:28)
[2019-06-26] MEDS ORDERED: MORPHINE 10 MG/1 ML VIAL ONE (13:34)
[2019-06-26] MEDS: MORPHINE 10 MG/1 ML VIAL IV PRN ×2 (13:34→13:54)
[2019-06-26] MEDS: CETIRIZINE 10 MG TABLET PO SCH (16:25)
[2019-06-26] MEDS: POTASSIUM CHLORIDE 10 MEQ TABLET PO SCH (16:25)
[2019-06-26] MEDS: MULTIVITAMIN (CENTRUM) TABLET PO SCH (16:25)
[2019-06-26] MEDS: MELATONIN 3 MG TABLET PO SCH (22:23)
[2019-06-26] MEDS: clonazePAM 0.5 MG TABLET PO SCH (22:23)
[2019-06-27] MEDS: MORPHINE 4 MG/1 ML VIAL IV PRN ×3 (01:23→09:43)
[2019-06-27] MEDS: LATANOPROST 0.005% OPH SOLN 2.5 ML BOTTLE BOTH EYES SCH (01:24)
[2019-06-27] MEDS: LACTATED RINGERS 1,000 ML IV SCH (05:31)
[2019-06-27] MEDS: LINEZOLID INJ 600 MG in PREMIX 1 EACH IV SCH ×2 (06:41→18:39)
[2019-06-27 06:56] LABS: Basophils # 0.1 10*3/uL (0.0-0.2); Basophils % 0.7 % (0.0-0.8); Eosinophils # 0.1 10*3/uL (0.0-0.87); Eosinophils % 1.2 % (0.00-10.9); Hematocrit 26.5 VOL% (42.0-52.0); Hemoglobin 8.7 GM/DL (14.0-18.0); Immature Granulocytes % 0.7 %; Immature Granulocytes Absolute 0.07 #; Mean Corpuscular HGB Conc 32.8 GM/DL (32-36); Mean Platelet Volume 9.3 FL (9.6-12.0); Monocytes % 9.5 % (1.7-12.7); Neutrophils % 77.9 % (38.7-73.9); Platelet Count 371 T/CUMM (130-400); Red Blood Count 3.08 MC/CUMM (3.8-5.5); Red Cell Distribution Width 15.9 % (9.3-17.3); White Blood Count 10.5 T/CUMM (4-12)
[2019-06-27 07:11] LABS: Calcium 9.3 MG/DL (8.5-10.1); Osmolality,Calculated 278.7 MOS/KG (273-304)
[2019-06-27] MEDS: CETIRIZINE 10 MG TABLET PO SCH (09:27)
[2019-06-27] MEDS: FUROSEMIDE 20 MG TABLET PO SCH ×2 (09:27→20:52)
[2019-06-27] MEDS: PANTOPRAZOLE 40 MG TABLET PO SCH (09:27)
[2019-06-27] MEDS: NEBIVOLOL 10 MG TABLET PO SCH (09:27)
[2019-06-27] MEDS: MULTIVITAMIN (CENTRUM) TABLET PO SCH (09:27)
[2019-06-27] MEDS: METHOCARBAMOL 750 MG TABLET PO SCH ×2 (09:27→17:35)
[2019-06-27] MEDS: POTASSIUM CHLORIDE 10 MEQ TABLET PO SCH (09:27)
[2019-06-27] MEDS: TAMSULOSIN 0.4 MG CAPSULE PO SCH (09:28)
[2019-06-27] MEDS: PIPERACILLIN/TAZOBACTAM 3,375 MG in SODIUM CHLORIDE 0.9% 100 ML IV SCH ×2 (09:28→20:52)
[2019-06-27] MEDS: metOLazone 5 MG TABLET PO SCH ×2 (09:28→10:43)
[2019-06-27] MEDS: PROBENECID 500 MG TABLET PO SCH ×2 (09:29→20:52)
[2019-06-27] MEDS: SODIUM HYPOCHLORITE 0.25% IRRIG 473 ML BOTTLE TOP SCH (09:29)
[2019-06-27] MEDS: INSULIN LISPRO 100 UNIT/ML SUBCUT SCH ×3 (09:45→18:15)
[2019-06-27] MEDS: BISACODYL 5 MG TABLET PO PRN (20:51)
[2019-06-27] MEDS: clonazePAM 0.5 MG TABLET PO SCH (20:52)
[2019-06-27] MEDS: MELATONIN 3 MG TABLET PO SCH (20:52)
[2019-06-28] MEDS: LATANOPROST 0.005% OPH SOLN 2.5 ML BOTTLE BOTH EYES SCH (01:21)
[2019-06-28] MEDS: LACTATED RINGERS 1,000 ML IV SCH ×3 (03:53→13:34)
[2019-06-28 05:38] LABS: Basophils # 0.1 10*3/uL (0.0-0.2); Basophils % 0.7 % (0.0-0.8); Eosinophils # 0.3 10*3/uL (0.0-0.87); Eosinophils % 2.5 % (0.00-10.9); Hematocrit 27.5 VOL% (42.0-52.0); Immature Granulocytes % 0.7 %; Immature Granulocytes Absolute 0.08 #; Lymphocytes # 1.1 10*3/uL (1.4-4.0); Lymphocytes % 9.6 % (21.2-54.2); Mean Corpuscular HGB Conc 32.7 GM/DL (32-36); Mean Corpuscular Volume 85.4 FL (87-102); Mean Platelet Volume 9.8 FL (9.6-12.0); Monocytes % 8.5 % (1.7-12.7); Platelet Count 382 T/CUMM (130-400); Red Blood Count 3.22 MC/CUMM (3.8-5.5); Red Cell Distribution Width 15.9 % (9.3-17.3); White Blood Count 11.8 T/CUMM (4-12)
[2019-06-28 05:47] LABS: Calcium 9.2 MG/DL (8.5-10.1)
[2019-06-28] MEDS: MORPHINE 4 MG/1 ML VIAL IV PRN ×2 (05:58→13:10)
[2019-06-28] MEDS: LINEZOLID INJ 600 MG in PREMIX 1 EACH IV SCH (05:59)
[2019-06-28] MEDS: CETIRIZINE 10 MG TABLET PO SCH (09:15)
[2019-06-28] MEDS: MULTIVITAMIN (CENTRUM) TABLET PO SCH (09:15)
[2019-06-28] MEDS: INSULIN LISPRO 100 UNIT/ML SUBCUT SCH ×2 (09:16→13:15)
[2019-06-28] MEDS: METHOCARBAMOL 750 MG TABLET PO SCH (09:16)
[2019-06-28] MEDS: FUROSEMIDE 20 MG TABLET PO SCH (09:16)
[2019-06-28] MEDS: POTASSIUM CHLORIDE 10 MEQ TABLET PO SCH (09:16)
[2019-06-28] MEDS: NEBIVOLOL 10 MG TABLET PO SCH (09:16)
[2019-06-28] MEDS: TAMSULOSIN 0.4 MG CAPSULE PO SCH (09:16)
[2019-06-28] MEDS: PROBENECID 500 MG TABLET PO SCH (09:16)
[2019-06-28] MEDS: PANTOPRAZOLE 40 MG TABLET PO SCH (09:17)
[2019-06-28] MEDS: PIPERACILLIN/TAZOBACTAM 3,375 MG in SODIUM CHLORIDE 0.9% 100 ML IV SCH (09:20)
[2019-06-28] MEDS ORDERED: MAGNESIUM HYDROXIDE SUSP 30 ML UDCUP PO PRN (09:47)
[2019-06-28] MEDS: SODIUM HYPOCHLORITE 0.25% IRRIG 473 ML BOTTLE TOP SCH (11:00)
[2019-06-28 11:36] VITALS: BP 136/56
== END 2019-06-28 13:20 | DRG 240 ==
LOC: N.3E 09:52
PROVIDERS: ADMIT Surgery; ATTEND Surgery

== ENCOUNTER 2020-04-10 15:41 | Observation (INO) ==
[2020-04-10] MEDS ORDERED: VANCOMYCIN INJ 1,000 MG in SODIUM CHLORIDE 0.9% 250 ML IV STA ×2 (16:30→16:32)
[2020-04-10] MEDS ORDERED: VANCOMYCIN 1,000 MG VIAL ONE (16:44)
[2020-04-10 17:00] LABS: Basophils # 0.1 10*3/uL (0.0-0.2); Basophils % 1.2 % (0.0-0.8); Eosinophils # 0.2 10*3/uL (0.0-0.87); Eosinophils % 3.3 % (0.00-10.9); Hematocrit 32.8 VOL% (42.0-52.0); Hemoglobin 10.8 GM/DL (14.0-18.0); Immature Granulocytes % 0.2 %; Immature Granulocytes Absolute 0.01 #; Lymphocytes # 1.6 10*3/uL (1.4-4.0); Lymphocytes % 27.7 % (21.2-54.2); Mean Corpuscular HGB Conc 32.9 GM/DL (32-36); Mean Corpuscular Volume 87.9 FL (87-102); Mean Platelet Volume 10.5 FL (9.6-12.0); Monocytes % 12.9 % (1.7-12.7); Neutrophils % 54.7 % (38.7-73.9); Platelet Count 342 T/CUMM (130-400); Red Blood Count 3.73 MC/CUMM (3.8-5.5); Red Cell Distribution Width 20.3 % (9.3-17.3); White Blood Count 5.7 T/CUMM (4-12)
[2020-04-10 17:02] LABS: Albumin 2.6 G/DL (3.4-5.0); Bilirubin,Total 0.6 MG/DL (0.2-1.0); Calcium 9.8 MG/DL (8.5-10.1); Osmolality,Calculated 285.5 MOS/KG (273-304); Total Protein 7.4 G/DL (6.4-8.3)
[2020-04-10] MEDS ORDERED: DEXTROSE 50% 25 GM/50 ML VIAL IV PRN ×2 (18:59→19:21)
[2020-04-10] MEDS ORDERED: ONDANSETRON 4 MG/2 ML VIAL IV PRN (18:59)
[2020-04-10] MEDS ORDERED: guaiFENesin/DM ER 600-30 MG TABLET PO PRN (18:59)
[2020-04-10] MEDS ORDERED: NICOTINE 21 MG/24 HR PATCH TRANSDERM PRN (18:59)
[2020-04-10] MEDS ORDERED: GLUCAGON 1 MG VIAL IM PRN (18:59)
[2020-04-10] MEDS ORDERED: diphenhydrAMINE CAP 25 MG CAPSULE PO PRN (18:59)
[2020-04-10] MEDS ORDERED: ZALEPLON 5 MG CAPSULE PO PRN (18:59)
[2020-04-10] MEDS ORDERED: SODIUM CHLORIDE 0.9% 1,000 ML IV SCH (19:00)
[2020-04-10 21:42] LABS: Bacteria,Urine Occasional /HPF (Few); Bilirubin,Urine Negative (Negative); Blood, Urine Negative (Negative); Glucose,Urine (UA) Negative (Negative); Hyaline Casts,Urine 6 /LPF (0-3); Ketones,Urine Negative (Negative); Mucus,Urine Occasional /LPF (Occasional); Nitrite,Urine Negative (Negative); Protein,Urine Negative; Urine Appearance CLEAR (Clear); Urine Color Yellow (Yellow); Urine Specific Gravity 1.011 (1.001-1.035); Urine Urobilinogen < 2.0 EU/DL (0.2-1.0)
[2020-04-10] MEDS ORDERED: VANCOMYCIN INJ 750 MG in SODIUM CHLORIDE 0.9% 250 ML IV ONE (22:30)
[2020-04-10] MEDS: INSULIN REGULAR 100 UNIT/ML SUBCUT SCH (23:08)
[2020-04-11 05:33] LABS: Basophils # 0.1 10*3/uL (0.0-0.2); Basophils % 1.8 % (0.0-0.8); Eosinophils # 0.2 10*3/uL (0.0-0.87); Eosinophils % 4.8 % (0.00-10.9); Hematocrit 26.8 VOL% (42.0-52.0); Hemoglobin 8.9 GM/DL (14.0-18.0); Immature Granulocytes % 0.2 %; Immature Granulocytes Absolute 0.01 #; Lymphocytes # 1.4 10*3/uL (1.4-4.0); Lymphocytes % 30.8 % (21.2-54.2); Mean Corpuscular HGB Conc 33.2 GM/DL (32-36); Mean Platelet Volume 10.3 FL (9.6-12.0); Monocytes % 14.8 % (1.7-12.7); Neutrophils % 47.6 % (38.7-73.9); Platelet Count 282 T/CUMM (130-400); Red Blood Count 3.08 MC/CUMM (3.8-5.5); Red Cell Distribution Width 19.9 % (9.3-17.3); White Blood Count 4.4 T/CUMM (4-12)
[2020-04-11 06:06] LABS: Albumin 1.9 G/DL (3.4-5.0); Bilirubin,Total 0.4 MG/DL (0.2-1.0); Calcium 9.1 MG/DL (8.5-10.1); Osmolality,Calculated 277.8 MOS/KG (273-304); Total Protein 6.2 G/DL (6.4-8.3)
[2020-04-11] MEDS ORDERED: LEVOFLOXACIN 500 MG TABLET PO SCH (07:00)
[2020-04-11] MEDS ORDERED: DEXTROSE 50% 25 GM/50 ML VIAL IV PRN (07:47)
[2020-04-11] MEDS ORDERED: GLUCAGON 1 MG VIAL IM PRN (07:47)
[2020-04-11] MEDS: INSULIN REGULAR 100 UNIT/ML SUBCUT SCH ×2 (09:19→12:29)
[2020-04-11 11:03] VITALS: BP 116/86
[2020-04-11] MEDS ORDERED: CLINDAMYCIN 300 MG CAPSULE PO SCH (14:00)
== END 2020-04-11 12:25 ==
LOC: EDSEX → EDBD → EDUNIT# → N.ED 15:41 → N.EDINP 15:41 → N.2E 21:29
PROVIDERS: ADMIT Internal Medicine Geriatric Medicine; ATTEND Internal Medicine Geriatric Medicine

== ENCOUNTER 2020-09-20 10:47 | Inpatient (IN) ==
[2020-09-20 12:02] LABS: Basophils % 0.7 % (0.0-0.8); Eosinophils # 0.1 10*3/uL (0.0-0.87); Hematocrit 38.8 VOL% (42.0-52.0); Hemoglobin 11.8 GM/DL (14.0-18.0); Immature Granulocytes % 0.9 %; Immature Granulocytes Absolute 0.05 #; Lymphocytes % 18.9 % (21.2-54.2); Mean Corpuscular HGB Conc 30.4 GM/DL (32-36); Mean Platelet Volume 11.7 FL (9.6-12.0); Monocytes % 12.8 % (1.7-12.7); Neutrophils % 64.7 % (38.7-73.9); Platelet Count 172 T/CUMM (130-400); Red Cell Distribution Width 21.2 % (9.3-17.3); White Blood Count 5.4 T/CUMM (4-12)
[2020-09-20 12:21] LABS: Bilirubin,Total 0.5 MG/DL (0.2-1.0); Calcium 8.6 MG/DL (8.5-10.1); Total Protein 7.7 G/DL (5.0-7.5)
[2020-09-20 12:22] LABS: Albumin 2.9 G/DL (3.4-5.0); Osmolality,Calculated 307.1 MOS/KG (273-304); Potassium 5.3 MMOL/L (3.5-5.1)
[2020-09-20 12:25] LABS: INR 1.3; PT Patient Result 13.5 SECS (9.8-11.9)
[2020-09-20] MEDS ORDERED: PIPERACILLIN/TAZOBACTAM 3,375 MG in SODIUM CHLORIDE 0.9% 100 ML IV STA (12:31)
[2020-09-20] MEDS ORDERED: SODIUM CHLORIDE 0.9% 500 ML IV STA (12:34)
[2020-09-20] MEDS ORDERED: PIPERACILLIN/TAZOBACTAM 3,375 MG VIAL IV ONE (12:37)
[2020-09-20] MEDS ORDERED: SODIUM CHLORIDE 0.9% 100 ML IV ONE (12:37)
[2020-09-20 12:53] LABS: Bacteria,Urine Many /HPF (Few); Bilirubin,Urine Negative (Negative); Blood, Urine Small mg/dL (Negative); Glucose,Urine (UA) Negative (Negative); Hyaline Casts,Urine 10 /LPF (0-3); Ketones,Urine Negative (Negative); Mucus,Urine Occasional /LPF (Occasional); Nitrite,Urine Negative (Negative); Protein,Urine 100 MG/DL; RBC,Urine 12 /HPF (0-4); Squamous Epithelial Cell,Urine Occasional /HPF (0-10); Urine Appearance Slightly Hazy (Clear); Urine Color Amber (Yellow); Urine Specific Gravity 1.019 (1.001-1.035); Urine Urobilinogen < 2.0 EU/DL (0.2-1.0); WBC,Urine 98 /HPF (0-6)
[2020-09-20] MEDS ORDERED: ONDANSETRON 4 MG/2 ML VIAL IV PRN (13:41)
[2020-09-20] MEDS ORDERED: GLUCAGON 1 MG VIAL IM PRN ×2 (13:41)
[2020-09-20] MEDS ORDERED: DEXTROSE 50% 25 GM/50 ML VIAL IV PRN ×2 (13:41)
[2020-09-20] MEDS ORDERED: BENZONATATE 100 MG CAPSULE PO PRN (13:51)
[2020-09-20] MEDS: CLINDAMYCIN INJ 600 MG in PREMIX 1 EACH IV SCH ×2 (14:42→21:20)
[2020-09-20] MEDS: INSULIN REGULAR 100 UNIT/ML SUBCUT SCH ×2 (16:40→21:00)
[2020-09-20] MEDS: TAMSULOSIN 0.4 MG CAPSULE PO SCH (17:31)
[2020-09-20] MEDS: THIAMINE IV SCH (18:01)
[2020-09-20] MEDS: MULTIVITAMIN IV SCH (18:01)
[2020-09-20] MEDS: DEXTROSE 5% IV SCH (18:01)
[2020-09-20] MEDS: NACL 0.45% IV SCH (18:01)
[2020-09-20] MEDS: LATANOPROST 0.005% OPH SOLN 2.5 ML BOTTLE BOTH EYES SCH (21:20)
[2020-09-20] MEDS: APIXABAN 2.5 MG TABLET PO SCH (21:20)
[2020-09-21] MEDS: CLINDAMYCIN INJ 600 MG in PREMIX 1 EACH IV SCH (05:11)
[2020-09-21 06:04] LABS: Basophils % 0.8 % (0.0-0.8); Eosinophils # 0.1 10*3/uL (0.0-0.87); Eosinophils % 2.7 % (0.00-10.9); Hematocrit 38.7 VOL% (42.0-52.0); Hemoglobin 11.9 GM/DL (14.0-18.0); Immature Granulocytes % 0.4 %; Immature Granulocytes Absolute 0.02 #; Lymphocytes # 0.9 10*3/uL (1.4-4.0); Lymphocytes % 18.7 % (21.2-54.2); Mean Corpuscular HGB Conc 30.7 GM/DL (32-36); Mean Corpuscular Volume 97.5 FL (87-102); Mean Platelet Volume 11.4 FL (9.6-12.0); Monocytes % 12.7 % (1.7-12.7); Neutrophils % 64.7 % (38.7-73.9); Platelet Count 169 T/CUMM (130-400); Red Blood Count 3.97 MC/CUMM (3.8-5.5); Red Cell Distribution Width 21.4 % (9.3-17.3); White Blood Count 4.8 T/CUMM (4-12)
[2020-09-21 08:49] LABS: Calcium 8.5 MG/DL (8.5-10.1); Osmolality,Calculated 306.3 MOS/KG (273-304); Potassium 5.4 MMOL/L (3.5-5.1)
[2020-09-21] MEDS: PANTOPRAZOLE 40 MG TABLET PO SCH (09:28)
[2020-09-21] MEDS: NEBIVOLOL 10 MG TABLET PO SCH (09:28)
[2020-09-21] MEDS: TAMSULOSIN 0.4 MG CAPSULE PO SCH (09:28)
[2020-09-21] MEDS: APIXABAN 2.5 MG TABLET PO SCH ×2 (09:29→21:37)
[2020-09-21] MEDS: INSULIN REGULAR 100 UNIT/ML SUBCUT SCH ×4 (09:29→21:37)
[2020-09-21] MEDS: FEBUXOSTAT 80 MG TABLET PO SCH (09:31)
[2020-09-21] MEDS ORDERED: DEXTROSE 5% NACL 0.45% 1,000 ML IV SCH (10:00)
[2020-09-21] MEDS ORDERED: VENLAFAXINE XR 75 MG CAPSULE PO SCH (11:00)
[2020-09-21] MEDS ORDERED: POLYETHYLENE GLYCOL POWDER 17 GM PACK PO SCH (11:00)
[2020-09-21] MEDS: PIPERACILLIN/TAZOBACTAM 3,375 MG in SODIUM CHLORIDE 0.9% 100 ML IV SCH ×3 (12:19→23:42)
[2020-09-21] MEDS ORDERED: POLYETHYLENE GLYCOL POWDER 17 GM PACK PO PRN (15:57)
[2020-09-21] MEDS ORDERED: FUROSEMIDE 40 MG/4 ML VIAL IV ONE (15:59)
[2020-09-21] MEDS: MULTIVITAMIN IV SCH (18:47)
[2020-09-21] MEDS: THIAMINE IV SCH (18:47)
[2020-09-21] MEDS: DEXTROSE 5% IV SCH (18:47)
[2020-09-21] MEDS: NACL 0.45% IV SCH (18:47)
[2020-09-21] MEDS: traMADol 50 MG TABLET PO PRN (18:49)
[2020-09-21] MEDS: LATANOPROST 0.005% OPH SOLN 2.5 ML BOTTLE BOTH EYES SCH (21:37)
[2020-09-22 06:21] LABS: Basophils # 0.1 10*3/uL (0.0-0.2); Basophils % 0.8 % (0.0-0.8); Eosinophils # 0.2 10*3/uL (0.0-0.87); Hematocrit 40.2 VOL% (42.0-52.0); Hemoglobin 12.7 GM/DL (14.0-18.0); Immature Granulocytes % 0.6 %; Immature Granulocytes Absolute 0.05 #; Lymphocytes # 1.2 10*3/uL (1.4-4.0); Lymphocytes % 14.8 % (21.2-54.2); Mean Corpuscular HGB Conc 31.6 GM/DL (32-36); Mean Corpuscular Volume 96.2 FL (87-102); Mean Platelet Volume 11.4 FL (9.6-12.0); Monocytes % 12.7 % (1.7-12.7); NRBC # 0.03 10*3/uL; Neutrophils % 69.1 % (38.7-73.9); Platelet Count 156 T/CUMM (130-400); Red Blood Count 4.18 MC/CUMM (3.8-5.5); Red Cell Distribution Width 21.5 % (9.3-17.3); White Blood Count 7.9 T/CUMM (4-12)
[2020-09-22 06:46] LABS: Calcium 8.4 MG/DL (8.5-10.1); Osmolality,Calculated 302.8 MOS/KG (273-304); Potassium 5.5 MMOL/L (3.5-5.1)
[2020-09-22] MEDS: INSULIN REGULAR 100 UNIT/ML SUBCUT SCH ×4 (08:57→21:35)
[2020-09-22] MEDS ORDERED: FUROSEMIDE 40 MG/4 ML VIAL IV SCH (09:00)
[2020-09-22] MEDS: PANTOPRAZOLE 40 MG TABLET PO SCH (09:04)
[2020-09-22] MEDS: NEBIVOLOL 10 MG TABLET PO SCH (09:04)
[2020-09-22] MEDS: FEBUXOSTAT 80 MG TABLET PO SCH (09:04)
[2020-09-22] MEDS: TAMSULOSIN 0.4 MG CAPSULE PO SCH (09:04)
[2020-09-22] MEDS: PIPERACILLIN/TAZOBACTAM 3,375 MG in SODIUM CHLORIDE 0.9% 100 ML IV SCH (11:52)
[2020-09-22 13:31] LABS: ABG Base Excess -5.6 MMOL/L (-2.5-2.5); ABG HCO3 19.2 MMOL/L (20-26); ABG Oxygen Saturation 63.2 % (95-100); ABG TCO2 25.7 MMOL/L (23-27)
[2020-09-22 13:35] LABS: ABG PCO2 88.3 MM HG (35-48); ABG PH 7.099 (7.35-7.45)
[2020-09-22 14:33] VITALS: BP 151/76
[2020-09-22] MEDS ORDERED: FUROSEMIDE 100 MG/10 ML VIAL IV ONE (15:00)
[2020-09-22] MEDS: hydrALAZINE 25 MG TABLET PO SCH ×2 (16:40→21:35)
[2020-09-22 16:43] LABS: ABG Base Excess -5.3 MMOL/L (-2.5-2.5); ABG HCO3 25.9 MMOL/L (20-26); ABG Oxygen Saturation 99.5 % (95-100); ABG PO2 287.5 MM HG (80-95); ABG TCO2 28.5 MMOL/L (23-27); Allen Test Positive
[2020-09-22 16:46] LABS: ABG PCO2 84.3 MM HG (35-48); ABG PH 7.106 (7.35-7.45)
[2020-09-22] MEDS: carvediloL 3.125 MG TABLET PO SCH (21:35)
[2020-09-22] MEDS: cefOXitin 1,000 MG in SODIUM CHLORIDE 0.9% 100 ML IV SCH (21:35)
[2020-09-22] MEDS: LATANOPROST 0.005% OPH SOLN 2.5 ML BOTTLE BOTH EYES SCH (21:36)
[2020-09-23] MEDS: PRAMIPEXOLE 1 MG TABLET PO SCH ×2 (01:28→20:02)
[2020-09-23] MEDS: traMADol 50 MG TABLET PO PRN (01:28)
[2020-09-23 04:14] LABS: ABG Base Excess -3.3 MMOL/L (-2.5-2.5); ABG HCO3 21.6 MMOL/L (20-26); ABG Oxygen Saturation 98.7 % (95-100); ABG PCO2 64.2 MM HG (35-48); ABG PH 7.215 (7.35-7.45); ABG TCO2 23.7 MMOL/L (23-27); Allen Test Positive; Pt O2 Delivery Device BIPAP
[2020-09-23 04:47] LABS: Basophils # 0.1 10*3/uL (0.0-0.2); Basophils % 0.7 % (0.0-0.8); Eosinophils # 0.3 10*3/uL (0.0-0.87); Eosinophils % 3.5 % (0.00-10.9); Hematocrit 38.2 VOL% (42.0-52.0); Hemoglobin 11.8 GM/DL (14.0-18.0); Immature Granulocytes % 0.4 %; Immature Granulocytes Absolute 0.03 #; Lymphocytes # 0.8 10*3/uL (1.4-4.0); Lymphocytes % 10.2 % (21.2-54.2); Mean Corpuscular HGB Conc 30.9 GM/DL (32-36); Mean Corpuscular Volume 96.7 FL (87-102); Mean Platelet Volume 11.4 FL (9.6-12.0); NRBC # 0.02 10*3/uL; Neutrophils % 73.2 % (38.7-73.9); Platelet Count 153 T/CUMM (130-400); Red Blood Count 3.95 MC/CUMM (3.8-5.5); White Blood Count 8.2 T/CUMM (4-12)
[2020-09-23 05:12] LABS: Albumin 2.4 G/DL (3.4-5.0); Bilirubin,Total 0.6 MG/DL (0.2-1.0); Calcium 8.5 MG/DL (8.5-10.1); Osmolality,Calculated 306.4 MOS/KG (273-304); Potassium 5.5 MMOL/L (3.5-5.1); Total Protein 7.4 G/DL (5.0-7.5)
[2020-09-23 05:15] LABS: Eosinophils 6 % (0-10); Hypochromasia 1+; Lymphocytes 13 % (20-55); Segmented Neutrophils 71 % (50-85); Total Cells Counted 100
[2020-09-23 05:16] LABS: Anisocytosis 1+; Microcytosis 1+; Ovalocytes Slight
[2020-09-23] MEDS: INSULIN REGULAR 100 UNIT/ML SUBCUT SCH ×4 (07:37→20:09)
[2020-09-23] MEDS: carvediloL 3.125 MG TABLET PO SCH ×2 (09:01→20:02)
[2020-09-23] MEDS: FEBUXOSTAT 80 MG TABLET PO SCH (09:01)
[2020-09-23] MEDS: ISOSORBIDE MONONITRATE 30 MG TABLET PO SCH (09:01)
[2020-09-23] MEDS: hydrALAZINE 25 MG TABLET PO SCH ×4 (09:01→20:02)
[2020-09-23] MEDS: TAMSULOSIN 0.4 MG CAPSULE PO SCH (09:01)
[2020-09-23] MEDS: PANTOPRAZOLE 40 MG TABLET PO SCH (09:01)
[2020-09-23] MEDS: cefOXitin 1,000 MG in SODIUM CHLORIDE 0.9% 100 ML IV SCH ×2 (09:02→20:03)
[2020-09-23] MEDS ORDERED: FUROSEMIDE INJ 200 MG in SODIUM CHLORIDE 0.9% 80 ML IV SCH (12:30)
[2020-09-23 14:07] LABS: Allen Test Positive
[2020-09-23 14:08] LABS: ABG Base Excess -4.9 MMOL/L (-2.5-2.5); ABG HCO3 20.4 MMOL/L (20-26); ABG Oxygen Saturation 96.8 % (95-100); ABG PCO2 68.3 MM HG (35-48); ABG PO2 91.5 MM HG (80-95); ABG TCO2 23.3 MMOL/L (23-27)
[2020-09-23 14:10] LABS: ABG PH 7.178 (7.35-7.45)
[2020-09-23 14:58] LABS: Total Protein 7.5 G/DL (5.0-7.5)
[2020-09-23 16:14] LABS: Amylase,Pleural Fluid 48 U/L; LDH,Pleural Fluid 74 U/L; Total Protein,Pleural Fluid 2.8 G/DL
[2020-09-23] MEDS: COLLAGENASE OINT 30 GM TUBE TOP SCH (16:15)
[2020-09-23] MEDS: FUROSEMIDE INJ 200 MG in SODIUM CHLORIDE 0.9% 80 ML IV SCH (16:16)
[2020-09-23 16:49] LABS: Lymphocytes,Pleural Fluid 62 %; Monocytes,Pleural Fluid 35 %; Neutrophils,Pleural Fluid 3 %; RBC,Pleural Fluid 139 T/CUMM
[2020-09-23] MEDS: LATANOPROST 0.005% OPH SOLN 2.5 ML BOTTLE BOTH EYES SCH (20:03)
[2020-09-24 04:40] LABS: ABG Base Excess -3.3 MMOL/L (-2.5-2.5); ABG HCO3 21.9 MMOL/L (20-26); ABG Oxygen Saturation 93.9 % (95-100); ABG PCO2 40.1 MM HG (35-48); ABG PH 7.355 (7.35-7.45); ABG PO2 69.4 MM HG (80-95); ABG TCO2 23.1 MMOL/L (23-27); Allen Test Positive; Pt O2 Delivery Device BIPAP
[2020-09-24 05:19] LABS: Basophils # 0.1 10*3/uL (0.0-0.2); Basophils % 0.5 % (0.0-0.8); Eosinophils # 0.2 10*3/uL (0.0-0.87); Eosinophils % 2.3 % (0.00-10.9); Hematocrit 38.3 VOL% (42.0-52.0); Hemoglobin 12.2 GM/DL (14.0-18.0); Immature Granulocytes % 0.4 %; Immature Granulocytes Absolute 0.04 #; Lymphocytes # 0.8 10*3/uL (1.4-4.0); Lymphocytes % 8.8 % (21.2-54.2); Mean Corpuscular HGB Conc 31.9 GM/DL (32-36); Mean Corpuscular Volume 93.9 FL (87-102); Mean Platelet Volume 11.8 FL (9.6-12.0); Monocytes % 9.5 % (1.7-12.7); NRBC # 0.03 10*3/uL; Neutrophils % 78.5 % (38.7-73.9); Platelet Count 147 T/CUMM (130-400); Red Blood Count 4.08 MC/CUMM (3.8-5.5); Red Cell Distribution Width 20.9 % (9.3-17.3); White Blood Count 9.2 T/CUMM (4-12)
[2020-09-24 05:28] LABS: Calcium 8.9 MG/DL (8.5-10.1); Osmolality,Calculated 308.5 MOS/KG (273-304); Potassium 5.7 MMOL/L (3.5-5.1)
[2020-09-24 05:30] LABS: Hypochromasia 1+; Microcytosis 1+; Platelet Estimate Adequate
[2020-09-24] MEDS: FUROSEMIDE INJ 200 MG in SODIUM CHLORIDE 0.9% 80 ML IV SCH (05:53)
[2020-09-24] MEDS: LORazepam 2 MG/1 ML VIAL IV PRN (06:03)
[2020-09-24] MEDS: INSULIN REGULAR 100 UNIT/ML SUBCUT SCH ×4 (08:08→20:09)
[2020-09-24] MEDS: FEBUXOSTAT 80 MG TABLET PO SCH (08:35)
[2020-09-24] MEDS: TAMSULOSIN 0.4 MG CAPSULE PO SCH (08:35)
[2020-09-24] MEDS: carvediloL 3.125 MG TABLET PO SCH ×2 (08:35→20:09)
[2020-09-24] MEDS: hydrALAZINE 25 MG TABLET PO SCH ×3 (08:35→20:09)
[2020-09-24] MEDS: PANTOPRAZOLE 40 MG TABLET PO SCH (08:35)
[2020-09-24] MEDS: ISOSORBIDE MONONITRATE 30 MG TABLET PO SCH (08:35)
[2020-09-24] MEDS: COLLAGENASE OINT 30 GM TUBE TOP SCH (08:36)
[2020-09-24] MEDS: cefOXitin 1,000 MG in SODIUM CHLORIDE 0.9% 100 ML IV SCH ×2 (08:36→20:21)
[2020-09-24] MEDS: SODIUM POLYSTYRENE SULFATE 15 GM/60 ML BOTTLE PO STA ×2 (10:04→10:19)
[2020-09-24] MEDS: DOBUTamine 500 MG/250 ML PREMIX IV PRN (11:31)
[2020-09-24] MEDS: traMADol 50 MG TABLET PO PRN (18:49)
[2020-09-24] MEDS: PRAMIPEXOLE 1 MG TABLET PO SCH (20:09)
[2020-09-24] MEDS: LATANOPROST 0.005% OPH SOLN 2.5 ML BOTTLE BOTH EYES SCH (22:22)
[2020-09-25] MEDS: LORazepam 2 MG/1 ML VIAL IV PRN (00:33)
[2020-09-25 05:29] LABS: Basophils % 0.5 % (0.0-0.8); Eosinophils # 0.1 10*3/uL (0.0-0.87); Eosinophils % 2.1 % (0.00-10.9); Hematocrit 33.9 VOL% (42.0-52.0); Hemoglobin 10.9 GM/DL (14.0-18.0); Immature Granulocytes % 0.3 %; Immature Granulocytes Absolute 0.02 #; Lymphocytes # 0.7 10*3/uL (1.4-4.0); Lymphocytes % 11.7 % (21.2-54.2); Mean Corpuscular HGB Conc 32.2 GM/DL (32-36); Mean Corpuscular Volume 93.1 FL (87-102); Mean Platelet Volume 12.1 FL (9.6-12.0); Monocytes % 11.9 % (1.7-12.7); Neutrophils % 73.5 % (38.7-73.9); Platelet Count 140 T/CUMM (130-400); Red Blood Count 3.64 MC/CUMM (3.8-5.5); Red Cell Distribution Width 20.5 % (9.3-17.3); White Blood Count 6.2 T/CUMM (4-12)
[2020-09-25 05:51] LABS: Eosinophils 2 % (0-10); Lymphocytes 6 % (20-55); Platelet Estimate Adequate; Segmented Neutrophils 81 % (50-85); Total Cells Counted 100
[2020-09-25 05:52] LABS: Hypochromasia 1+; Microcytosis 1+
[2020-09-25 05:58] LABS: Calcium 8.4 MG/DL (8.5-10.1); Osmolality,Calculated 310.4 MOS/KG (273-304); Potassium 5.3 MMOL/L (3.5-5.1)
[2020-09-25] MEDS: INSULIN REGULAR 100 UNIT/ML SUBCUT SCH ×5 (07:31→20:27)
[2020-09-25] MEDS: carvediloL 3.125 MG TABLET PO SCH ×2 (08:05→20:08)
[2020-09-25] MEDS: ISOSORBIDE MONONITRATE 30 MG TABLET PO SCH (08:05)
[2020-09-25] MEDS: FEBUXOSTAT 80 MG TABLET PO SCH (08:05)
[2020-09-25] MEDS: PANTOPRAZOLE 40 MG TABLET PO SCH (08:05)
[2020-09-25] MEDS: hydrALAZINE 25 MG TABLET PO SCH ×3 (08:06→20:08)
[2020-09-25] MEDS: TAMSULOSIN 0.4 MG CAPSULE PO SCH (08:06)
[2020-09-25] MEDS: cefOXitin 1,000 MG in SODIUM CHLORIDE 0.9% 100 ML IV SCH ×2 (08:07→20:07)
[2020-09-25] MEDS: COLLAGENASE OINT 30 GM TUBE TOP SCH (08:07)
[2020-09-25] MEDS ORDERED: PRAMIPEXOLE 1 MG TABLET PO ONE (10:30)
[2020-09-25] MEDS ORDERED: LOPERAMIDE 2 MG CAPSULE PO PRN (11:10)
[2020-09-25] MEDS: ALBUMIN 25% 25 GM in PREMIX 1 EACH IV SCH ×2 (12:07→20:09)
[2020-09-25] MEDS: traMADol 50 MG TABLET PO PRN (13:33)
[2020-09-25] MEDS: DOBUTamine 500 MG/250 ML PREMIX IV PRN (13:34)
[2020-09-25] MEDS ORDERED: ALBUTEROL/IPRATROPIUM 3 ML NEB RESP TX ONE (14:03)
[2020-09-25] MEDS: ALBUTEROL/IPRATROPIUM 3 ML NEB RESP TX SCH ×2 (14:06→20:15)
[2020-09-25] MEDS ORDERED: ALBUTEROL/IPRATROPIUM 3 ML NEB RESP TX PRN (15:32)
[2020-09-25] MEDS ORDERED: ZINC OXIDE PASTE 113 GM TUBE TOP PRN (18:40)
[2020-09-25] MEDS: LATANOPROST 0.005% OPH SOLN 2.5 ML BOTTLE BOTH EYES SCH (20:08)
[2020-09-25] MEDS: PRAMIPEXOLE 1 MG TABLET PO SCH (20:09)
[2020-09-25] MEDS: LOPERAMIDE 2 MG CAPSULE PO SCH (20:11)
[2020-09-26] MEDS: ALBUTEROL/IPRATROPIUM 3 ML NEB RESP TX SCH ×4 (00:23→20:00)
[2020-09-26 04:12] LABS: ABG HCO3 24.5 MMOL/L (20-26); ABG PH 7.327 (7.35-7.45); ABG TCO2 24.2 MMOL/L (23-27); Allen Test Positive
[2020-09-26 04:35] LABS: Basophils % 0.7 % (0.0-0.8); Eosinophils # 0.3 10*3/uL (0.0-0.87); Eosinophils % 5.8 % (0.00-10.9); Hematocrit 32.2 VOL% (42.0-52.0); Hemoglobin 10.6 GM/DL (14.0-18.0); Immature Granulocytes % 0.5 %; Immature Granulocytes Absolute 0.03 #; Lymphocytes # 0.7 10*3/uL (1.4-4.0); Lymphocytes % 12.6 % (21.2-54.2); Mean Corpuscular HGB Conc 32.9 GM/DL (32-36); Mean Corpuscular Volume 91.7 FL (87-102); Mean Platelet Volume 11.5 FL (9.6-12.0); Monocytes % 12.6 % (1.7-12.7); Neutrophils % 67.8 % (38.7-73.9); Platelet Count 127 T/CUMM (130-400); Red Blood Count 3.51 MC/CUMM (3.8-5.5); Red Cell Distribution Width 19.9 % (9.3-17.3); White Blood Count 5.5 T/CUMM (4-12)
[2020-09-26 04:58] LABS: Albumin 2.7 G/DL (3.4-5.0); Bilirubin,Total 0.6 MG/DL (0.2-1.0); Calcium 8.7 MG/DL (8.5-10.1); Osmolality,Calculated 308.4 MOS/KG (273-304); Total Protein 7.3 G/DL (5.0-7.5)
[2020-09-26] MEDS: ALBUMIN 25% 25 GM in PREMIX 1 EACH IV SCH ×2 (04:58→16:26)
[2020-09-26 05:37] LABS: Hypochromasia 1+; Microcytosis 1+; Ovalocytes Slight; Platelet Estimate Adequate
[2020-09-26] MEDS: LOPERAMIDE 2 MG CAPSULE PO SCH ×2 (08:35→20:44)
[2020-09-26] MEDS: PRAMIPEXOLE 1 MG TABLET PO SCH ×2 (08:35→20:44)
[2020-09-26] MEDS: FEBUXOSTAT 80 MG TABLET PO SCH (08:35)
[2020-09-26] MEDS: TAMSULOSIN 0.4 MG CAPSULE PO SCH (08:36)
[2020-09-26] MEDS: ISOSORBIDE MONONITRATE 30 MG TABLET PO SCH (08:36)
[2020-09-26] MEDS: carvediloL 3.125 MG TABLET PO SCH ×2 (08:36→20:44)
[2020-09-26] MEDS: PANTOPRAZOLE 40 MG TABLET PO SCH (08:37)
[2020-09-26] MEDS: hydrALAZINE 25 MG TABLET PO SCH ×3 (08:37→20:43)
[2020-09-26] MEDS: cefOXitin 1,000 MG in SODIUM CHLORIDE 0.9% 100 ML IV SCH ×2 (08:39→20:44)
[2020-09-26] MEDS: COLLAGENASE OINT 30 GM TUBE TOP SCH (09:18)
[2020-09-26] MEDS: INSULIN REGULAR 100 UNIT/ML SUBCUT SCH ×3 (09:18→20:46)
[2020-09-26] MEDS: ALPRAZolam 0.25 MG TABLET PO PRN ×2 (10:55→20:43)
[2020-09-26] MEDS: DOBUTamine 500 MG/250 ML PREMIX IV PRN (16:24)
[2020-09-26] MEDS ORDERED: NITROGLYCERIN 2% OINT 1 INCH/GM PACK TOP PRN (16:40)
[2020-09-26] MEDS ORDERED: MORPHINE 4 MG/1 ML VIAL ONE (16:42)
[2020-09-26] MEDS: MORPHINE 4 MG/1 ML VIAL IV PRN ×2 (16:43→23:30)
[2020-09-26 17:26] LABS: CKMB % 10.4 %; Troponin I < 0.015 NG/ML (0.00-0.045)
[2020-09-26] MEDS: LATANOPROST 0.005% OPH SOLN 2.5 ML BOTTLE BOTH EYES SCH (20:43)
[2020-09-26] MEDS: APIXABAN 2.5 MG TABLET PO SCH (20:44)
[2020-09-27] MEDS: ALBUMIN 25% 25 GM in PREMIX 1 EACH IV SCH ×2 (00:37→09:29)
[2020-09-27] MEDS: ALBUTEROL/IPRATROPIUM 3 ML NEB RESP TX SCH ×4 (01:13→20:05)
[2020-09-27 04:20] LABS: Allen Test Positive
[2020-09-27 04:25] LABS: ABG Base Excess -5.9 MMOL/L (-2.5-2.5); ABG HCO3 22.9 MMOL/L (20-26); ABG Oxygen Saturation 91.5 % (95-100); ABG PCO2 58.9 MM HG (35-48); ABG PO2 74.3 MM HG (80-95); ABG TCO2 24.7 MMOL/L (23-27)
[2020-09-27 04:27] LABS: ABG PH 7.208 (7.35-7.45)
[2020-09-27 05:18] LABS: Basophils % 0.8 % (0.0-0.8); Eosinophils # 0.2 10*3/uL (0.0-0.87); Eosinophils % 3.8 % (0.00-10.9); Hematocrit 31.5 VOL% (42.0-52.0); Hemoglobin 9.9 GM/DL (14.0-18.0); Immature Granulocytes % 0.4 %; Immature Granulocytes Absolute 0.02 #; Lymphocytes # 0.6 10*3/uL (1.4-4.0); Lymphocytes % 11.5 % (21.2-54.2); Mean Corpuscular HGB Conc 31.4 GM/DL (32-36); Mean Corpuscular Volume 94.9 FL (87-102); Mean Platelet Volume 11.1 FL (9.6-12.0); Monocytes % 12.8 % (1.7-12.7); Neutrophils % 70.7 % (38.7-73.9); Platelet Count 117 T/CUMM (130-400); Red Blood Count 3.32 MC/CUMM (3.8-5.5); Red Cell Distribution Width 20.9 % (9.3-17.3); White Blood Count 5.3 T/CUMM (4-12)
[2020-09-27 05:31] LABS: Albumin 2.8 G/DL (3.4-5.0); Bilirubin,Total 0.5 MG/DL (0.2-1.0); Calcium 8.4 MG/DL (8.5-10.1); Osmolality,Calculated 308.4 MOS/KG (273-304); Potassium 5.3 MMOL/L (3.5-5.1); Total Protein 6.9 G/DL (5.0-7.5)
[2020-09-27 05:40] LABS: Eosinophils 7 % (0-10); Lymphocytes 12 % (20-55); Nucleated Red Blood Cells 1 (0-5); Segmented Neutrophils 69 % (50-85); Total Cells Counted 100
[2020-09-27 05:41] LABS: Hypochromasia 1+; Microcytosis 1+; Ovalocytes Slight
[2020-09-27] MEDS: cefOXitin 1,000 MG in SODIUM CHLORIDE 0.9% 100 ML IV SCH ×2 (08:22→20:42)
[2020-09-27] MEDS: TAMSULOSIN 0.4 MG CAPSULE PO SCH (08:22)
[2020-09-27] MEDS: PRAMIPEXOLE 1 MG TABLET PO SCH ×2 (08:23→20:42)
[2020-09-27] MEDS: hydrALAZINE 25 MG TABLET PO SCH ×4 (08:23→20:42)
[2020-09-27] MEDS: ISOSORBIDE MONONITRATE 30 MG TABLET PO SCH (08:23)
[2020-09-27] MEDS: FEBUXOSTAT 80 MG TABLET PO SCH (08:23)
[2020-09-27] MEDS: LOPERAMIDE 2 MG CAPSULE PO SCH (08:24)
[2020-09-27] MEDS: PANTOPRAZOLE 40 MG TABLET PO SCH (08:24)
[2020-09-27] MEDS: carvediloL 3.125 MG TABLET PO SCH ×2 (08:24→20:42)
[2020-09-27] MEDS ORDERED: ALBUMIN 25% 25 GM in PREMIX 1 EACH IV SCH (09:00)
[2020-09-27] MEDS: APIXABAN 2.5 MG TABLET PO SCH ×2 (09:07→20:43)
[2020-09-27] MEDS: ALPRAZolam 0.25 MG TABLET PO PRN (09:07)
[2020-09-27] MEDS: INSULIN REGULAR 100 UNIT/ML SUBCUT SCH ×4 (09:29→20:43)
[2020-09-27] MEDS: COLLAGENASE OINT 30 GM TUBE TOP SCH (09:29)
[2020-09-27] MEDS ORDERED: LOPERAMIDE 2 MG CAPSULE PO PRN (10:43)
[2020-09-27] MEDS: MORPHINE 4 MG/1 ML VIAL IV PRN (13:05)
[2020-09-27] MEDS: MORPHINE 10 MG/5 ML UDCUP PO SCH ×2 (16:06→21:30)
[2020-09-27] MEDS: LATANOPROST 0.005% OPH SOLN 2.5 ML BOTTLE BOTH EYES SCH (20:42)
[2020-09-27] MEDS: DOBUTamine 500 MG/250 ML PREMIX IV PRN (21:31)
[2020-09-28] MEDS: ALBUTEROL/IPRATROPIUM 3 ML NEB RESP TX SCH ×4 (00:45→19:42)
[2020-09-28] MEDS: MORPHINE 10 MG/5 ML UDCUP PO SCH ×5 (04:35→21:12)
[2020-09-28 06:12] LABS: Basophils % 0.4 % (0.0-0.8); Eosinophils # 0.2 10*3/uL (0.0-0.87); Hematocrit 33.5 VOL% (42.0-52.0); Hemoglobin 10.4 GM/DL (14.0-18.0); Immature Granulocytes % 0.2 %; Immature Granulocytes Absolute 0.01 #; Lymphocytes # 0.6 10*3/uL (1.4-4.0); Lymphocytes % 11.6 % (21.2-54.2); Mean Corpuscular Volume 95.7 FL (87-102); Mean Platelet Volume 10.7 FL (9.6-12.0); Monocytes % 13.2 % (1.7-12.7); NRBC # 0.02 10*3/uL; Neutrophils % 69.6 % (38.7-73.9); Red Cell Distribution Width 21.4 % (9.3-17.3); White Blood Count 4.8 T/CUMM (4-12)
[2020-09-28 06:15] LABS: Platelet Count 104 T/CUMM (130-400)
[2020-09-28 06:28] LABS: Albumin 2.7 G/DL (3.4-5.0); Bilirubin,Total 0.4 MG/DL (0.2-1.0); Calcium 8.5 MG/DL (8.5-10.1); Osmolality,Calculated 309.4 MOS/KG (273-304); Potassium 5.5 MMOL/L (3.5-5.1); Total Protein 6.9 G/DL (5.0-7.5)
[2020-09-28 06:31] LABS: Eosinophils 7 % (0-10); Hypochromasia 1+; Lymphocytes 8 % (20-55); Microcytosis 1+; Platelet Estimate Decreased; Segmented Neutrophils 70 % (50-85); Total Cells Counted 100
[2020-09-28] MEDS: INSULIN REGULAR 100 UNIT/ML SUBCUT SCH ×4 (07:19→21:13)
[2020-09-28] MEDS: carvediloL 3.125 MG TABLET PO SCH (08:23)
[2020-09-28] MEDS: APIXABAN 2.5 MG TABLET PO SCH (08:23)
[2020-09-28] MEDS: PRAMIPEXOLE 1 MG TABLET PO SCH (08:24)
[2020-09-28] MEDS: ISOSORBIDE MONONITRATE 30 MG TABLET PO SCH (08:24)
[2020-09-28] MEDS: PANTOPRAZOLE 40 MG TABLET PO SCH (08:24)
[2020-09-28] MEDS: TAMSULOSIN 0.4 MG CAPSULE PO SCH (08:24)
[2020-09-28] MEDS: FEBUXOSTAT 80 MG TABLET PO SCH (08:24)
[2020-09-28] MEDS: cefOXitin 1,000 MG in SODIUM CHLORIDE 0.9% 100 ML IV SCH ×2 (08:28→21:12)
[2020-09-28] MEDS: hydrALAZINE 25 MG TABLET PO SCH ×2 (09:10→14:47)
[2020-09-28] MEDS: COLLAGENASE OINT 30 GM TUBE TOP SCH (09:11)
[2020-09-28] MEDS ORDERED: SODIUM CHLORIDE 0.9% 500 ML IV ONE (10:40)
[2020-09-28] MEDS: ALBUMIN 25% 25 GM in PREMIX 1 EACH IV SCH (15:35)
[2020-09-28] MEDS: PHENYLEPHRINE DRIP 40 MG/250 ML PREMIX IV PRN ×4 (16:07→23:22)
[2020-09-28] MEDS: LATANOPROST 0.005% OPH SOLN 2.5 ML BOTTLE BOTH EYES SCH (21:13)
[2020-09-28] MEDS: MORPHINE 4 MG/1 ML VIAL IV PRN (21:13)
[2020-09-28] MEDS: DOBUTamine 500 MG/250 ML PREMIX IV PRN (21:30)
[2020-09-29] MEDS: ALBUMIN 25% 25 GM in PREMIX 1 EACH IV SCH (00:21)
[2020-09-29] MEDS: ALBUTEROL/IPRATROPIUM 3 ML NEB RESP TX SCH (01:00)
[2020-09-29] MEDS: PHENYLEPHRINE DRIP 40 MG/250 ML PREMIX IV PRN ×3 (01:21→05:25)
[2020-09-29] MEDS: MORPHINE 10 MG/5 ML UDCUP PO SCH (03:45)
[2020-09-29] MEDS ORDERED: LORazepam 2 MG/1 ML VIAL IV ONE (04:11)
[2020-09-29] MEDS ORDERED: ALBUTEROL/IPRATROPIUM 3 ML NEB RESP TX PRN (04:52)
[2020-09-29] MEDS ORDERED: MORPHINE 4 MG/1 ML VIAL IV PRN (05:43)
[2020-09-29] MEDS ORDERED: LORazepam 2 MG/1 ML VIAL IV PRN (05:43)
[2020-09-29] MEDS: MORPHINE 4 MG/1 ML VIAL IV PRN ×8 (05:51→12:21)
[2020-09-29] MEDS: LORazepam 2 MG/1 ML VIAL IV PRN ×8 (05:51→12:21)
== END 2020-09-29 13:09 | disposition expired | DRG 291 ==
LOC: EDBD → EDUNIT# → N.ED 10:47 → N.EDINP 13:41 → SUATTDRO 13:41 → N.EDINP 14:42 → N.5E 14:50 → N.CC 09-22 14:30
PROVIDERS: ADMIT Internal Medicine; ATTEND Family Medicine